=== PATIENT | female | born 1960 | race Hispanic/Latino ===

== ENCOUNTER 2016-12-14 19:34 | Emergency (ER) | payer OTHER ==
--- NOTE | 2016-12-14 21:33 | Emergency Department Report ---
HPI - General Time Seen by Provider: 12/14/16 21:04 - HPI HPI: This is a 56-year-old female presents to the emergency department with the need for a psychiatric evaluation. The patient appears to come through triage, although I'm unsure how she got to the hospital. Through triage they were able to obtain the fact that she has a history of bipolar disorder and there was allegedly some mention of the patient feeling suicidal. However since I seen the patient in the main emergency department, the patient is mostly nonverbal. She is very quick to get angry and even says that "you are pressing me off" when all that was asked is the patient's name, and how she got to the emergency department. The patient then began occasionally speaking to me but it does not appear to make complete sense. The patient says "what do you think you are", "you know you have some value" and "who do think you are bringing home." Otherwise patient is a poor historian. ED Past Medical Hx - Past Medical History Hx Congestive Heart Failure: Yes Hx Diabetes: No Hx Arthritis: Yes Hx Seizures: Yes Hx Kidney Stones: Yes Hx Psychiatric Treatment: Yes (Bipolar, Manic) Hx Asthma: Yes Hx COPD: Yes Additional medical history: Chronic knee pain - sees pain specialist,TIA x 2 - Surgical History Additional Surgical History: C-sections x 2 - Social History Smoking Status: Current Every Day Smoker - Medications Home Medications: Home Medications Medication Instructions Recorded Confirmed Last Taken Type Doxepin [SINEquan] 25 mg PO QHS 01/14/15 02/24/16 02/23/16 History 25mg Gabapentin [Neurontin] 300 mg PO QID 01/14/15 02/24/16 02/23/16 History 300mg clonazePAM [KlonoPIN] 1 mg PO TID 01/14/15 02/24/16 02/03/16 History 1mg Albuterol Sulfate [Ventolin HFA] 2 in2 IH Q4H 11/01/15 02/24/16 02/23/16 History 2 Aspirin EC [Aspirin Enteric Coated 81 mg PO DAILY 11/01/15 02/24/16 02/23/16 History TAB] 81mg Budesoni/Formotero 160-4.5(Nf) 2 inhalation IH BID 11/01/15 02/24/16 02/23/16 History [Symbicort 160-4.5 (Nf)] 2 Methocarbamol [Robaxin TAB] 750 mg PO Q12H PRN 11/01/15 02/24/16 02/23/16 History 750mg Naproxen [Naprosyn] 500 mg PO BID 11/01/15 02/24/16 02/17/16 History 500mg oxyCODONE [Roxicodone] 20 mg PO QID 11/01/15 02/24/16 02/23/16 History 20mg Divalproex ER [Depakote ER] 500 mg PO BID tablet 11/02/15 02/24/16 02/23/16 Rx 500mg ALBUTEROL Inhaler [ProAir HFA 2 puff IH QID PRN #1 inhalation 02/18/16 02/24/16 02/23/16 Rx Inhaler] 2 ED Review of Systems ROS: Stated complaint: MH EVAL Other details as noted in HPI Comment: Unobtainable due to pts medical conditions Physical Exam - Physical Exam Physical Exam: GENERAL: The patient is well-developed well-nourished. HEENT: Normocephalic. Atraumatic. Extraocular motions are intact. Patient has moist mucous membranes. Pupils equal reactive to light bilaterally. NECK: Supple. Trachea is midline. CHEST/LUNGS: Clear to auscultation. There is no respiratory distress noted. HEART/CARDIOVASCULAR: Regular. There is no tachycardia. There is no gallop rub or murmur. ABDOMEN: Abdomen is soft, nontender. Patient has normal bowel sounds. There is no abdominal distention. SKIN: There is no rash. There is no edema. There is no diaphoresis. NEURO: Patient is not cooperative and is often defiant. No obvious neurological deficits seen. Patient is mostly nonverbal but when she does speak the speech appears normal. MUSCULOSKELETAL: There is no tenderness or deformity. There is no limitation range of motion. There is no evidence of acute injury. ED Medical Decision Making - Lab Data Result diagrams: 12/14/16 21:09 12/14/16 21:09 - Medical Decision Making 56-year-old female presents to the emergency department with what appears to be some level of psychosis. There is some records that states she has a history of bipolar disorder. Patient is mostly nonverbal but sometimes will talk and appears to find. She is easily angry when she is asked basic questions. She also does not appear to make complete sense that she keeps saying random things such as that I have "worth" and asking who I "think (I'm) taking home." She will not answer most questions that are asked of her. Vital signs stable throughout her ED course. Labs thus far do not show any etiology of the patient 's symptoms. There is a leukocytosis of about 14,000 but there is no signs of infection seen on physical exam and the patient has no fever. No electrolyte abnormalities. Slightly elevated bicarbonate at that could show some dehydration, however patient able to take in oral fluids. No renal insufficiency. We are currently waiting on urinalysis to rule out urinary tract infection and for urine drug screen. However patient appears medically cleared for psychiatric placement. She has been made a 1013 secondary to her psychosis. - Differential Diagnosis schizophrenia, bipolar disorder, schizoaffective, substance abuse Critical Care Time: No Critical care attestation.: If time is entered above; I have spent that time in minutes in the direct care of this critically ill patient, excluding procedure time. ED Disposition Clinical Impression: Bipolar 1 disorder, Anger reaction Psychosis Qualifiers: Psychosis type: unspecified psychosis type Qualified Code(s): F29 - Unspecified psychosis not due to a substance or known physiological condition Schizophrenia Qualifiers: Schizophrenia type: unspecified Qualified Code(s): F20.9 - Schizophrenia, unspecified Disposition: DC/TX PSY HOSP/PSY UNIT Is pt being admited?: No Condition: Stable Referrals: PRIMARY CARE [Primary Care Provider] - 3-5 Days Time of Disposition: 00:41
[2016-12-14 21:37] LABS: Basophils % (Auto) 0.4 % (0.0-1.8); Eosinophils % (Auto) 0.9 % (0.0-4.3); Hematocrit 46.3 % (30.3-42.9); Hemoglobin 15.7 gm/dl (10.1-14.3); Mean Corpuscular HGB Conc 34 % (30-34); Mean Corpuscular Hemoglobin 31 pg (28-32); Mean Corpuscular Volume 91 fl (79-97); Platelet Count 345 K/mm3 (140-440); Red Blood Count 5.12 M/mm3 (3.65-5.03); Red Cell Distribution Width 14.7 % (13.2-15.2); White Blood Count 14.8 K/mm3 (4.5-11.0)
[2016-12-14 21:59] LABS: Alanine Aminotransferase 19 units/L (7-56); Albumin 4.4 g/dL (3.9-5); Alkaline Phosphatase 103 units/L (35-129); Anion Gap 22 mmol/L; BUN/Creatinine Ratio 35.55; Blood Urea Nitrogen 32 mg/dL (7-17); Calcium 10.3 mg/dL (8.4-10.2); Carbon Dioxide 21 mmol/L (22-30); Chloride 95.9 mmol/L (98-107); Glucose 103 mg/dL (65-100); Potassium 3.8 mmol/L (3.6-5.0); Sodium 135 mmol/L (137-145)
--- NOTE | 2016-12-15 12:55 | Consultation ---
History of Present Illness - Reason for Consult Consult date: 12/15/16 Reason for consult: Mental Health Evaluation Requesting physician: MILLER LONGORIA - Chief Complaint Chief complaint: "I don't know what is happening" - History of Present Psychiatric Illness This is a 56-year-old female presents to the emergency department with the need for a psychiatric evaluation. Today patient is irritable, but cooperative during assessment. She stated that she do not need to be here, because nothing is wrong with her. Per the patient, the only thing with her is her 'heart need to be replaced." Patient was jumping from one topic to the next during our conversation. She stated, "I cannot focus at this time." After a couple minute, patient stated that the engineering writer are out to get her. She deny being paranoid at this time. She cannot tell me what medication she takes at this time. She did state that she is "bipolar." Also, she could not tell me how she got to [facility]. She denies SI/HI's, AVH's, sleep disturbance or a poor appetite. She denies recreational drug use or alcohol consumption (etoh). Medications and Allergies Allergies Allergy/AdvReac Type Severity Reaction Status Date / Time haloperidol [From Haldol] Allergy Swelling Verified 02/17/16 23:27 haloperidol lactate Allergy Swelling Verified 06/13/13 23:08 [From Haldol] ibuprofen [From Motrin] Allergy Swelling Verified 02/17/16 23:27 Sulfa (Sulfonamide Allergy Unknown Verified 02/17/16 23:27 Antibiotics) ziprasidone HCl [From Geodon] Allergy Unknown Verified 02/17/16 23:27 ziprasidone mesylate Allergy Unknown Verified 02/17/16 23:26 [From Geodon] Home Medications Medication Instructions Recorded Confirmed Last Taken Type Doxepin [SINEquan] 25 mg PO QHS 01/14/15 02/24/16 02/23/16 History 25mg Gabapentin [Neurontin] 300 mg PO QID 01/14/15 02/24/16 02/23/16 History 300mg clonazePAM [KlonoPIN] 1 mg PO TID 01/14/15 02/24/16 02/03/16 History 1mg Albuterol Sulfate [Ventolin HFA] 2 in2 IH Q4H 11/01/15 02/24/16 02/23/16 History 2 Aspirin EC [Aspirin Enteric Coated 81 mg PO DAILY 11/01/15 02/24/16 02/23/16 History TAB] 81mg Budesoni/Formotero 160-4.5(Nf) 2 inhalation IH BID 11/01/15 02/24/16 02/23/16 History [Symbicort 160-4.5 (Nf)] 2 Methocarbamol [Robaxin TAB] 750 mg PO Q12H PRN 11/01/15 02/24/16 02/23/16 History 750mg Naproxen [Naprosyn] 500 mg PO BID 11/01/15 02/24/16 02/17/16 History 500mg oxyCODONE [Roxicodone] 20 mg PO QID 11/01/15 02/24/16 02/23/16 History 20mg Divalproex ER [Depakote ER] 500 mg PO BID tablet 11/02/15 02/24/16 02/23/16 Rx 500mg ALBUTEROL Inhaler [ProAir HFA 2 puff IH QID PRN #1 inhalation 02/18/16 02/24/16 02/23/16 Rx Inhaler] 2 Past psychiatric history - Past Medical History Past Medical History: COPD, seizures, other (kidney stones) Past Surgical History: No surgical history - past Psychiatric treatment and history Psych: Bipolar psychiatric treatment history: Multiple inpatient setting per the patient. She would not say if there is a fam psy hx. - Social History Social history: other (Patient would not say where she resides) Mental Status Exam - Vital signs Last Vital Signs Temp 98.0 F 12/15/16 09:16 Pulse 93 H 12/15/16 09:16 Resp 14 12/15/16 09:16 BP 131/76 12/15/16 09:16 Pulse Ox 95 12/15/16 09:16 - Exam Narrative exam: ROS (+) robb MSE: Appearance: irritable, cooperative Behavior: good eye contact Speech: regular rate and tone Mood: "okay" Affect: flat Thought Process: tangential, loose associations Thought Content: denies HI's and AVH's Motor Activity: ambulatory Cognition: a/ox 2 Insight: poor Judgment: poor Results Result Diagrams: 12/14/16 21:09 12/14/16 21:09 Abnormal lab results 12/14/16 12/14/16 Range/Units 21:09 21:09 WBC 14.8 H (4.5-11.0) K/mm3 RBC 5.12 H (3.65-5.03) M/mm3 Hgb 15.7 H (10.1-14.3) gm/dl Hct 46.3 H (30.3-42.9) % Davis # 1.0 H (0.0-0.8) K/mm3 Seg Neutrophils # 9.1 H (1.8-7.7) K/mm3 Sodium 135 L (137-145) mmol/L Chloride 95.9 L (98-107) mmol/L Carbon Dioxide 21 L (22-30) mmol/L BUN 32 H (7-17) mg/dL Glucose 103 H (65-100) mg/dL Calcium 10.3 H (8.4-10.2) mg/dL Total Protein 9.0 H (6.3-8.2) g/dL All other labs normal. Assessment and Plan Assessment and plan: Impression: Unspecified Mood DO. This is a 56-year-old female presents to the emergency department with the need for a psychiatric evaluation. Today patient is irritable, but cooperative during assessment. She stated that she do not need to be here, because nothing is wrong with her. Per the patient, the only thing with her is her 'heart need to be replaced." Patient was jumping from one topic to the next during our conversation. She denies SI/HI's and AVH's. DD: R/O Bipolar Recommendation/Plan: Continue 1013 with placement to inpatient psy services. Start Risperdal 2 mg PO HS for psychosis, Depakote 500 mg PO BID for mood, and Cogentin 0.5 mg PO HS for EPS prevention.. Discussed possible metabolic side effects from Risperdal with patient.
[2016-12-15 15:14] LABS: Urine Drugs of Abuse Note Disclamer
[2016-12-15 15:44] LABS: Bilirubin,Urine NEG (Negative); Blood,Urine NEG (Negative); Ketones,Urine 20 mg/dL (Negative); Leukocyte Esterase,Urine NEG (Negative); Mucus,Urine 3+ /HPF; Nitrite,Urine NEG (Negative)
[2016-12-15] MEDS: RisperDAL PO SCH (22:40)
[2016-12-15] MEDS: COGENTIN PO SCH (23:30)
[2016-12-16] MEDS ORDERED: TYLENOL ONE (07:32)
[2016-12-16] MEDS: TYLENOL PO PRN (08:04)
[2016-12-16] MEDS ORDERED: XANAX ONE (09:15)
[2016-12-16] MEDS ORDERED: XANAX PO ONE (09:16)
--- NOTE | 2016-12-16 15:55 | Progress Note ---
Subjective - Reason for Consult Consult date: 12/16/16 Reason for consult: psychiatric follow up - Chief Complaint Chief complaint: "people are talking about me" This is a 56-year-old female presented to the emergency department with the need for a psychiatric evaluation. Today patient is irritable, but cooperative during assessment. She denies SI/HI's, AVH's but has a disorganized thought process. She is tangential and expressing paranoid ideations. She states people are calling her names, calling her colors, and keeping her from sleeping. Mental Status Exam - Vital signs Last Vital Signs Temp 98.1 F 12/16/16 07:57 Pulse 98 H 12/16/16 07:57 Resp 16 12/16/16 08:02 BP 125/75 12/16/16 07:57 Pulse Ox 95 12/16/16 08:02 - Exam Orientation: time, place, person Affect: anxious Mood: anxious Thought content: paranoia Thought Process: Tangential, Disorganized Perceptions: none Speech: pressured Concentration: unable to pay attention Motor activity: restless Level of consciousness: alert Memory: Intact Sleep Symptoms: Difficulty Falling Asleep Interaction: cooperative Assessment and Plan Impression: Bipolar disorder with psychosis Recommendation/Plan: Continue 1013 with placement to inpatient psy services. Continue Risperdal 2 mg PO HS for psychosis, Depakote 500 mg PO BID for mood, and Cogentin 0.5 mg PO HS for EPS prevention.
[2016-12-16] MEDS: COGENTIN PO SCH (23:17)
[2016-12-16] MEDS: RisperDAL PO SCH (23:17)
--- NOTE | 2016-12-17 08:30 | Progress Note ---
Subjective - Reason for Consult Consult date: 12/17/16 Reason for consult: Psychiatry Follow-up - Chief Complaint Chief complaint: "I am ready to feel better" This is a 56-year-old female presented to the emergency department with the need for a psychiatric evaluation. Today patient is calm and cooperative during assessment. She stated that she cannot sleep because she feels "anxious." She was hyper verbal throughout our conversation with me having to interject. She denies SI/HI's, AVH's, but complains of sleep disturbance. She also stated that her appetite is not "okay." Mental Status Exam - Vital signs Last Vital Signs Temp 98.8 F 12/17/16 00:30 Pulse 134 H 12/17/16 00:30 Resp 20 12/17/16 02:21 BP 112/64 12/17/16 00:30 Pulse Ox 96 12/17/16 02:21 - Exam Narrative exam: MSE: Appearance: cooperative Behavior: good eye contact, hyper verbal Speech: regular rate and tone Mood: "anxious" Affect: flat Thought Process: circumstantial Thought Content: denies SI/HI's and AVH's Motor Activity: ambulatory Cognition: a/ox 3 Insight: limited Judgment: limited Assessment and Plan Impression: This is a 56-year-old female presented to the emergency department with the need for a psychiatric evaluation. Today patient is calm and cooperative during assessment. She stated that she cannot sleep because she feels "anxious." She rate her anxiety 6/10, with 10 being the worse. She was hyper verbal throughout our conversation with me having to interject. She denies SI/HI'sand AVH's. Positive for amphetamines and marijuana. Recommendation/Plan: Continue 1013 with placement to inpatient psy services. Continue Risperdal 2 mg PO HS for psychosis, Depakote 500 mg PO BID for mood, and Cogentin 0.5 mg PO HS for EPS prevention. Started Vistaril 25 mg PO TID for anxiety. Discussed possible metabolic side effects from Risperdal with patient.
[2016-12-17] MEDS: VISTARIL PO SCH ×3 (09:56→22:31)
[2016-12-17] MEDS: COGENTIN PO SCH (22:31)
[2016-12-17] MEDS: RisperDAL PO SCH (22:31)
[2016-12-18] MEDS ORDERED: TYLENOL PO ONE (03:00)
[2016-12-18 04:26] LABS: Basophils % (Auto) 0.5 % (0.0-1.8); Eosinophils % (Auto) 0.9 % (0.0-4.3); Hematocrit 38.4 % (30.3-42.9); Mean Corpuscular HGB Conc 34 % (30-34); Mean Corpuscular Hemoglobin 31 pg (28-32); Mean Corpuscular Volume 91 fl (79-97); Platelet Count 192 K/mm3 (140-440); Red Blood Count 4.21 M/mm3 (3.65-5.03); Red Cell Distribution Width 14.9 % (13.2-15.2)
--- NOTE | 2016-12-18 19:13 | Progress Note ---
Subjective - Reason for Consult Consult date: 12/18/16 Reason for consult: psychiatric follow up - Chief Complaint Chief complaint: "If I hurt someone, I'm sorry" This is a 56-year-old female presented to the emergency department with the need for a psychiatric evaluation. She required redirection through the interview stating she was sorry if she hurt someone. She also says people are talking about her and want her to be hurt. Staff report she left her room naked yesterday. She denies SI/HI's, AVH's, but complains of sleep disturbance. She also stated that her appetite is low. Mental Status Exam - Vital signs Last Vital Signs Temp 97.6 F 12/18/16 09:00 Pulse 96 H 12/18/16 09:00 Resp 14 12/18/16 09:00 BP 106/74 12/18/16 09:00 Pulse Ox 98 12/18/16 09:00 - Exam Narrative exam: she states she is at [place]. knows it is 2017 Orientation: person Affect: anxious Mood: fearful Thought content: delusions, paranoia Thought Process: Tangential, Disorganized Perceptions: other (denies) Speech: pressured Concentration: distractible Motor activity: restless Level of consciousness: alert Sleep Symptoms: Insomnia Appetite: decreased Interaction: pleasant Assessment and Plan Impression: Bipolar disorder with psychosis Recommendation/Plan: Continue 1013 with placement to inpatient psy services. Continue Risperdal 2 mg PO HS for psychosis, Depakote 500 mg PO BID for mood, and Cogentin 0.5 mg PO HS for EPS prevention.
[2016-12-18] MEDS: COGENTIN PO SCH (22:33)
[2016-12-18] MEDS: VISTARIL PO SCH ×2 (22:38→23:15)
[2016-12-18] MEDS: RisperDAL PO SCH (22:39)
[2016-12-19] MEDS: VISTARIL PO SCH ×2 (10:00→23:04)
--- NOTE | 2016-12-19 13:26 | Progress Note ---
Subjective - Reason for Consult Consult date: 12/19/16 Reason for consult: Psychosis/Anxiety - Chief Complaint Chief complaint: "If I hurt someone, I'm sorry" This is a 56-year-old female presented to the emergency department with the need for a psychiatric evaluation. She required redirection through the interview stating she was sorry if she hurt someone. She also says people are talking about her and want her to be hurt. Staff report she left her room naked yesterday. She denies SI/HI's, AVH's, but complains of sleep disturbance. She also stated that her appetite is low. Mental Status Exam - Vital signs Last Vital Signs Temp 98 F 12/19/16 08:45 Pulse 98 H 12/19/16 08:45 Resp 18 12/19/16 08:45 BP 110/79 12/19/16 08:45 Pulse Ox 98 12/19/16 08:45 - Exam Narrative exam: Patient is a 56 year olf female who presented to the ED on 12/14/2016 anxious and aggressive. Today she is being evaluated by psychiatry for her psychosis (auditory and visual hallucinations). Today, she appears to be very anxious and requesting medications, states, "I can't take it." Patient is very anxious not able to engage in assessment due to her anxiety. However, upon providing direct instructions to reduce her anxiety the patient anxiety level was reduced. She was easily redirected by staff. However, she required constant redirection while in the ED. Orientation: time, place, person Affect: anxious Mood: anxious Thought content: thought insertion Thought Process: Thought Blocking Perceptions: other (Denies but reports anxiety) Speech: other (labile with anxiety level) Concentration: distractible Motor activity: restless Level of consciousness: alert Memory: Intact Sleep Symptoms: Restless Appetite: decreased Interaction: cooperative, other Assessment and Plan Plan: 1. Add Geodon 10 mg, Ativan 2 mg, Benadryl 50 mg IM stat for behavior and anxiety as one time dose. 2. Continue pursuing [facility] placement 3. Continue 1013 Hold 4. Follow up on 12/20/2016 5. Monitor as needed
[2016-12-19] MEDS ORDERED: ATIVAN ONE (17:54)
[2016-12-19] MEDS ORDERED: ATIVAN IM ONE (18:04)
[2016-12-19] MEDS: RisperDAL PO SCH (23:06)
[2016-12-19] MEDS: COGENTIN PO SCH (23:06)
[2016-12-20] MEDS: VISTARIL PO SCH ×3 (09:19→23:17)
--- NOTE | 2016-12-20 15:30 | Physician Progress Note ---
FOLLOWUP REPORT REASON FOR FOLLOWUP: To reevaluate her mental status and also her response to therapy. SUBJECTIVE DATA: Includes this is just too much for me ____ here and voices, they are telling me someone is going to harm me, this is too much stress for me OBJECTIVE DATA: Include the patient is alert and oriented to person and place. She was unable to provide me with the day. Affect appears to be very irritable and anxious. Mood was congruent with that. Eye contact was limited. She was noted to be very hyperverbal. Thought process appeared to be very disorganized; however, she denies any suicidal or homicidal ideation. She reports hearing voices and seeing things, but she did not elaborate on what she was seen. She stated that the voices were telling her that they were going to harm her. She did report that she did not want to harm herself, but she has been very anxious since being here even on the current regimen that she is thinking we may have to increase her medications today. In regards to her sleep and her appetite, she reports doing fine. She is easily redirectable right now, but she requires constant redirection. Concentration and memory appear to be limited. Insight and judgment appears to be poor. ASSESSMENT: Includes schizoaffective disorder. PLAN: For her is to continue with the current regimen as prescribed. Continued to pursue inpatient hospitalization at [facility], which she is currently pending and we will continue to follow during hospitalization. JOB# [id number] TAMANNA/BEKA
[2016-12-20] MEDS: COGENTIN PO SCH (23:17)
[2016-12-20] MEDS: RisperDAL PO SCH (23:18)
[2016-12-21] MEDS: VISTARIL PO SCH ×4 (08:11→21:23)
--- NOTE | 2016-12-21 09:01 | Progress Note ---
Subjective - Reason for Consult Consult date: 12/21/16 Reason for consult: Psychiatry Follow-up - Chief Complaint Chief complaint: "I am stressed today" This is a 56-year-old female presented to the emergency department with the need for a psychiatric evaluation. Today patient is hyper verbal and delusional about robbing a bank. She stated that voices in her ear are "overwhelming and stressful" for her. She required redirection multiple during our conversation. She could not tell me more about her robbing a bank other than, "I am scared." She denies SI/HI's, VH's, or a poor appetite. She stated that she can't sleep at night because of the "voices." Mental Status Exam - Vital signs Last Vital Signs Temp 97.5 F L 12/21/16 08:40 Pulse 82 12/21/16 08:40 Resp 18 12/21/16 08:40 BP 103/65 12/21/16 08:40 Pulse Ox 94 12/21/16 08:40 - Exam Narrative exam: MSE: Appearance: cooperative Behavior: good eye contact, hyper verbal Speech: regular rate and tone Mood: "I'm stressed" Affect: flat Thought Process: tangential Thought Content: denies SI/HI's and AVH's Motor Activity: ambulatory Cognition: a/ox 3 Insight: poor Judgment: limited Assessment and Plan Impression: This is a 56-year-old female presented to the emergency department with the need for a psychiatric evaluation. Today patient is hyper verbal and delusional about robbing a bank. She stated that voices in her ear are "overwhelming and stressful" for her. She required redirection multiple during our conversation. She denies SI/HI's and VH's. Recommendation/Plan: Continue 1013 with placement to inpatient psy services. Increase Risperdal 2 mg PO BID for psychosis, Depakote 500 mg PO BID for mood, and Cogentin 0.5 mg PO HS for EPS prevention. Continue Vistaril 25 mg PO TID for anxiety. Discussed possible metabolic side effects from Risperdal with patient. [facility] ordered.
[2016-12-21 10:31] LABS: Hematocrit 38.6 % (30.3-42.9); Hemoglobin 12.7 gm/dl (10.1-14.3); Mean Corpuscular HGB Conc 33 % (30-34); Mean Corpuscular Hemoglobin 31 pg (28-32); Mean Corpuscular Volume 93 fl (79-97); Platelet Count 182 K/mm3 (140-440); Red Blood Count 4.16 M/mm3 (3.65-5.03); White Blood Count 6.2 K/mm3 (4.5-11.0)
[2016-12-21] MEDS: ATIVAN IM PRN ×2 (11:20→18:27)
[2016-12-21] MEDS: TYLENOL PO PRN (21:25)
[2016-12-21] MEDS: RisperDAL PO SCH (21:33)
[2016-12-21] MEDS: COGENTIN PO SCH (21:34)
--- NOTE | 2016-12-22 09:05 | Progress Note ---
Subjective - Reason for Consult Consult date: 12/22/16 Reason for consult: Psychiatry Follow-up - Chief Complaint Chief complaint: "I didn't do it" This is a 56-year-old female presented to the emergency department with the need for a psychiatric evaluation. Today patient is still hyper verbal and delusional about robbing a bank. She stated that voices told her that she have a gun. She stated that she finally got rest once she "tuned" out the voices, but still is "stressed" about the situation. She required redirection multiple times during our conversation. She denies SI/HI's, VH's, a poor appetite, or depression symptoms. She stated that she slept "okay" last night. Mental Status Exam - Vital signs Last Vital Signs Temp 98.5 F 12/22/16 08:11 Pulse 73 12/22/16 08:11 Resp 20 12/22/16 08:11 BP 111/55 12/22/16 08:11 Pulse Ox 100 12/22/16 08:11 - Exam Narrative exam: MSE: Appearance: cooperative Behavior: good eye contact, hyper verbal Speech: regular rate and tone Mood: "I don't feel well" Affect: flat Thought Process: tangential Thought Content: denies SI/HI's and VH's Motor Activity: ambulatory Cognition: a/ox 3 Insight: poor Judgment: poor Assessment and Plan Impression: This is a 56-year-old female presented to the emergency department with the need for a psychiatric evaluation. Today patient is still hyper verbal and delusional about robbing a bank. She stated that voices told her that she have a gun. She stated that she finally got rest once she "tuned" out the voices , but still is "stressed" about the situation. She denies SI/HI's and VH's. Recommendation/Plan: Continue 1013 with placement to [facility] pending. Continue Risperdal 2 mg PO BID for psychosis, Depakote 500 mg PO BID for mood, Cogentin 0.5 mg PO HS for EPS prevention, and Vistaril 25 mg PO TID for anxiety. Discussed possible metabolic side effects from Risperdal with patient. [facility] ordered.
[2016-12-22] MEDS: VISTARIL PO SCH ×3 (10:00→21:33)
[2016-12-22] MEDS: ATIVAN IM PRN ×3 (10:54→21:36)
[2016-12-22] MEDS: RisperDAL PO SCH ×2 (11:53→21:34)
[2016-12-22] MEDS: COGENTIN PO SCH (21:33)
[2016-12-22] MEDS: TYLENOL PO PRN (21:37)
[2016-12-23 07:54] VITALS: BP 106/77
[2016-12-23] MEDS: RisperDAL PO SCH (10:30)
[2016-12-23] MEDS: VISTARIL PO SCH (10:30)
--- NOTE | 2016-12-23 12:45 | Progress Note ---
Subjective - Reason for Consult Consult date: 12/23/16 Reason for consult: psychiatric follow up - Chief Complaint Chief complaint: "I'm having a nervous breakdown" This is a 56-year-old female presented to the emergency department with the need for a psychiatric evaluation. Today patient is still hyper verbal and delusional. She required redirection multiple times during our conversation. She denies SI/HI's, VH's, a poor appetite, or depression symptoms. She requested shot of ativan repeatedly. Mental Status Exam - Vital signs Last Vital Signs Temp 98.6 F 12/23/16 07:52 Pulse 97 H 12/23/16 07:52 Resp 18 12/23/16 07:52 BP 106/77 12/23/16 07:52 Pulse Ox 99 12/23/16 07:52 - Exam Narrative exam: MSE: Appearance: cooperative Behavior: good eye contact, hyper verbal Speech: regular rate and tone Mood: "I don't feel well" Affect: flat Thought Process: tangential Thought Content: denies SI/HI's and VH's Motor Activity: ambulatory Cognition: a/ox 3 Insight: poor Judgment: poor Assessment and Plan Impression: Psychosis Recommendation/Plan: Continue 1013 with placement to [facility] pending. Continue Risperdal 2 mg PO BID for psychosis, Depakote 500 mg PO BID for mood, Cogentin 0.5 mg PO HS for EPS prevention, and Vistaril 25 mg PO TID for anxiety.
== END 2016-12-23 17:51 ==
LOC: EEVIPCON 19:34 → ED 19:34
DX: F29 Unspecified psychosis not due to a substance or known physiological condition (principal); F20.9 Schizophrenia, unspecified; F31.9 Bipolar disorder, unspecified; R45.4 Irritability and anger; M19.90 Unspecified osteoarthritis, unspecified site; R56.9 Unspecified convulsions; I50.9 Heart failure, unspecified; J44.9 Chronic obstructive pulmonary disease, unspecified; J45.909 Unspecified asthma, uncomplicated; G89.29 Other chronic pain; F17.200 Nicotine dependence, unspecified, uncomplicated; Z79.82 Long term (current) use of aspirin
CPT/HCPCS: 36415; 80053; 80164; 80307; 81001; 84703; 85025; 85027; 96372; 99285; G0480; J2060; 80320; Q0177

== ENCOUNTER 2018-01-21 04:30 | Emergency (ER) | payer MEDICARE ==
[2018-01-21] MEDS ORDERED: DUONEB *Not for PRN Use IH ONE ×2 (07:38→08:12)
[2018-01-21] MEDS ORDERED: TYLENOL PO ONE (07:38)
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
[2018-01-21 10:29] VITALS: BP 114/67
== END 2018-01-21 10:27 | disposition home or self-care (01) ==
LOC: ED 04:30
DX: J44.1 Chronic obstructive pulmonary disease with (acute) exacerbation (principal); F29 Unspecified psychosis not due to a substance or known physiological condition; T23.101A Burn of first degree of right hand, unspecified site, initial encounter; X08.8XXA Exposure to other specified smoke, fire and flames, initial encounter; Y93.89 Activity, other specified; Y92.89 Other specified places as the place of occurrence of the external cause; Y99.8 Other external cause status; F17.200 Nicotine dependence, unspecified, uncomplicated
CPT/HCPCS: 94640; 96372; 99283; J2930

== ENCOUNTER 2018-01-23 19:28 | Emergency (ER) | payer MEDICARE ==
[2018-01-23 20:12] LABS: Basophils % (Auto) 0.2 % (0.0-1.8); Hematocrit 39.1 % (30.3-42.9); Lymphocytes # (Auto) 1.5 K/mm3 (1.2-5.4); Lymphocytes % (Auto) 15.3 % (13.4-35.0); Mean Corpuscular HGB Conc 33 % (30-34); Mean Corpuscular Hemoglobin 31 pg (28-32); Mean Corpuscular Volume 94 fl (79-97); Monocytes # (Auto) 0.6 K/mm3 (0.0-0.8); Monocytes % (Auto) 6.4 % (0.0-7.3); Platelet Count 212 K/mm3 (140-440); Red Blood Count 4.18 M/mm3 (3.65-5.03); Red Cell Distribution Width 14.2 % (13.2-15.2)
[2018-01-23 20:18] LABS: Bacteria,Urine 3+ /HPF (Negative); Bilirubin,Urine NEG (Negative); Blood,Urine NEG (Negative); Color,Urine Amber (Yellow); Hyaline Casts,Urine 24 /LPF; Mucus,Urine 3+ /HPF
[2018-01-23 20:24] LABS: Amphetamine Screen,Urine PRESUMPTIVE NEGATIVE; Cocaine Screen,Urine PRESUMPTIVE NEGATIVE; Methadone Screen,Urine PRESUMPTIVE NEGATIVE
[2018-01-23 20:51] LABS: Benzodiazepines Screen,Urine PRESUMPTIVE POSITIVE; Cannabinoid Screen,Urine PRESUMPTIVE POSITIVE; Opiate Screen,Urine PRESUMPTIVE POSITIVE
[2018-01-24] MEDS ORDERED: MACROBID PO ONE (00:15)
[2018-01-24] MEDS ORDERED: NACL 0.9% 1000 ML 1,000 ML IV ONE ×2 (00:15→04:17)
[2018-01-24] MEDS ORDERED: K-DUR PO ONE ×5 (00:15→08:00)
[2018-01-24] MEDS ORDERED: DUONEB *Not for PRN Use IH ONE (02:35)
--- NOTE | 2018-01-24 04:28 | Emergency Department Report ---
ED Psych HPI - General Chief Complaint: Psych Stated Complaint: MENTAL HEALTH Time Seen by Provider: 01/23/18 23:42 Source: patient Mode of arrival: Ambulatory Limitations: No Limitations - History of Present Illness Initial Comments: 57-year-old female with a past medical history of arthritis, asthma, CHF, COPD, bipolar, kidney stones, seizures, chronic knee pain and TIAs presents to the hospital complaints "I think I had a nervous breakdown". Patient did not comply with her psychiatric medication. She is brought in by her roommate who states that patient is manic, off meds, and becoming verbally and physically aggressive at home. Patient complains of hallucinations. She complains of feeling overall tired and drained but no pain. Decreased by mouth intake reported. - Related Data Home Medications Medication Instructions Recorded Confirmed Last Taken Doxepin [SINEquan] 25 mg PO QHS 01/14/15 01/23/18 02/23/16 25mg Gabapentin [Neurontin] 300 mg PO QID 01/14/15 01/23/18 02/23/16 300mg clonazePAM [KlonoPIN] 1 mg PO TID 01/14/15 01/23/18 02/03/16 1mg Albuterol Sulfate [Ventolin HFA] 2 in2 IH Q4H 11/01/15 01/23/18 02/23/16 2 Aspirin EC [Aspirin Enteric Coated 81 mg PO DAILY 11/01/15 01/23/18 02/23/16 TAB] 81mg Budesoni/Formotero 160-4.5(Nf) 2 inhalation IH BID 11/01/15 01/23/18 02/23/16 [Symbicort 160-4.5 (Nf)] 2 Methocarbamol [Robaxin TAB] 750 mg PO Q12H PRN 11/01/15 01/23/18 02/23/16 750mg Naproxen [Naprosyn] 500 mg PO BID 11/01/15 01/23/18 02/17/16 500mg oxyCODONE [Roxicodone] 20 mg PO QID 11/01/15 01/23/18 02/23/16 20mg QUEtiapine [SEROquel] 200 mg PO QHS 01/24/18 01/24/18 Unknown Previous Rx's Medication Instructions Recorded Last Taken Type Divalproex ER [Depakote ER] 500 mg PO BID tablet 11/02/15 02/23/16 Rx 500mg ALBUTEROL Inhaler [ProAir HFA 2 puff IH QID PRN #1 inhalation 02/18/16 02/23/16 Rx Inhaler] 2 Albuterol Sulfate [Ventolin Hfa] 1 puff IH Q4H PRN #1 hfa.aer.ad 01/21/18 Unknown Rx Azithromycin [Zithromax Z-BARBIE] 250 mg PO QDAY #1 pack 01/21/18 Unknown Rx Bacitracin Zinc Oint [Antibiotic 1 applicatio TP BID #1 tube 01/21/18 Unknown Rx Oint] predniSONE [Deltasone] 20 mg PO QDAY #5 tab 01/21/18 Unknown Rx Allergies Allergy/AdvReac Type Severity Reaction Status Date / Time haloperidol [From Haldol] Allergy Swelling Verified 02/17/16 23:27 haloperidol lactate Allergy Swelling Verified 06/13/13 23:08 [From Haldol] ibuprofen [From Motrin] Allergy Swelling Verified 02/17/16 23:27 Sulfa (Sulfonamide Allergy Unknown Verified 02/17/16 23:27 Antibiotics) ziprasidone HCl [From Geodon] Allergy Unknown Verified 02/17/16 23:27 ziprasidone mesylate Allergy Unknown Verified 02/17/16 23:26 [From Geodon] ED Review of Systems ROS: Stated complaint: MENTAL HEALTH Other details as noted in HPI Comment: All other systems reviewed and negative ED Past Medical Hx - Past Medical History Hx Congestive Heart Failure: Yes Hx Diabetes: No Hx Arthritis: Yes Hx Seizures: Yes Hx Kidney Stones: Yes Hx Psychiatric Treatment: Yes (Bipolar, Manic) Hx Asthma: Yes Hx COPD: Yes Additional medical history: Chronic knee pain - sees pain specialist,TIA x 2 - Surgical History Additional Surgical History: C-sections x 2. hysterectomy - Social History Smoking Status: Unknown if ever smoked Substance Use Type: None - Medications Home Medications: Home Medications Medication Instructions Recorded Confirmed Last Taken Type Doxepin [SINEquan] 25 mg PO QHS 01/14/15 01/23/18 02/23/16 History 25mg Gabapentin [Neurontin] 300 mg PO QID 01/14/15 01/23/18 02/23/16 History 300mg clonazePAM [KlonoPIN] 1 mg PO TID 01/14/15 01/23/18 02/03/16 History 1mg Albuterol Sulfate [Ventolin HFA] 2 in2 IH Q4H 11/01/15 01/23/18 02/23/16 History 2 Aspirin EC [Aspirin Enteric Coated 81 mg PO DAILY 11/01/15 01/23/18 02/23/16 History TAB] 81mg Budesoni/Formotero 160-4.5(Nf) 2 inhalation IH BID 11/01/15 01/23/18 02/23/16 History [Symbicort 160-4.5 (Nf)] 2 Methocarbamol [Robaxin TAB] 750 mg PO Q12H PRN 11/01/15 01/23/18 02/23/16 History 750mg Naproxen [Naprosyn] 500 mg PO BID 11/01/15 01/23/18 02/17/16 History 500mg oxyCODONE [Roxicodone] 20 mg PO QID 11/01/15 01/23/18 02/23/16 History 20mg Divalproex ER [Depakote ER] 500 mg PO BID tablet 11/02/15 01/23/18 02/23/16 Rx 500mg ALBUTEROL Inhaler [ProAir HFA 2 puff IH QID PRN #1 inhalation 02/18/16 01/23/18 02/23/16 Rx Inhaler] 2 Albuterol Sulfate [Ventolin Hfa] 1 puff IH Q4H PRN #1 hfa.aer.ad 01/21/18 Unknown Rx Azithromycin [Zithromax Z-BARBIE] 250 mg PO QDAY #1 pack 01/21/18 01/23/18 Unknown Rx Bacitracin Zinc Oint [Antibiotic 1 applicatio TP BID #1 tube 01/21/18 01/23/18 Unknown Rx Oint] predniSONE [Deltasone] 20 mg PO QDAY #5 tab 01/21/18 01/23/18 Unknown Rx QUEtiapine [SEROquel] 200 mg PO QHS 01/24/18 01/24/18 Unknown History ED Physical Exam - General Limitations: No Limitations - Other Other exam information: General: No limitations, patient is alert in no acute distress Head exam: Atraumatic, normocephalic Eyes exam: Normal appearance ENT: Moist mucous membrane, normal oropharynx Neck exam: Normal inspection, full range of motion Respiratory exam: Clear to auscultation bilateral, no wheezes, rales, crackles Cardiovascular: Normal rate and rhythm, normal heart sounds Abdomen: Soft, nondistended, and nontender, with normal bowel sounds, no rebound, or guarding Extremity: Full range of motion normal inspection no deformity Back: Normal Inspection, full range of motion, no tenderness Neurologic: Alert, oriented x3, cranial nerves intact, no motor or sensory deficit Psychiatric: normal affect, normal mood Skin: Warm, dry, intact ED Course Vital Signs 01/23/18 01/23/18 01/24/18 19:27 19:34 03:04 Temperature 98.8 F 98.8 F Pulse Rate 110 H 113 H Pulse Rate [ 63 Anterior Bilateral Throughout] Respiratory 20 20 Rate Respiratory 18 Rate [Anterior Bilateral Throughout] Blood Pressure 141/79 141/79 Blood Pressure [Right] O2 Sat by Pulse 95 95 Oximetry 01/24/18 01/24/18 01/24/18 03:15 08:30 20:32 Temperature 98.3 F 97.8 F Pulse Rate 94 H 67 Pulse Rate [ 65 Anterior Bilateral Throughout] Respiratory 16 18 Rate Respiratory 18 Rate [Anterior Bilateral Throughout] Blood Pressure 115/62 Blood Pressure 111/47 [Right] O2 Sat by Pulse 97 95 Oximetry ED Medical Decision Making - Lab Data Result diagrams: 01/23/18 19:42 01/24/18 07:56 Lab Results 01/23/18 01/23/18 01/23/18 Range/Units 19:42 19:42 19:42 WBC (4.5-11.0) K/mm3 RBC (3.65-5.03) M/mm3 Hgb (10.1-14.3) gm/dl Hct (30.3-42.9) % MCV (79-97) fl MCH (28-32) pg MCHC (30-34) % RDW (13.2-15.2) % Plt Count (140-440) K/mm3 Lymph % (Auto) (13.4-35.0) % Alexander % (Auto) (0.0-7.3) % Eos % (Auto) (0.0-4.3) % Baso % (Auto) (0.0-1.8) % Lymph # (1.2-5.4) K/mm3 Alexander # (0.0-0.8) K/mm3 Eos # (0.0-0.4) K/mm3 Baso # (0.0-0.1) K/mm3 Seg Neutrophils % (40.0-70.0) % Seg Neutrophils # (1.8-7.7) K/mm3 Sodium 146 H (137-145) mmol/L Potassium 2.9 L* (3.6-5.0) mmol/L Chloride 105.6 (98-107) mmol/L Carbon Dioxide 21 L (22-30) mmol/L Anion Gap 22 mmol/L BUN 36 H (7-17) mg/dL Creatinine 1.4 H (0.7-1.2) mg/dL Estimated GFR 39 ml/min BUN/Creatinine Ratio 26 % Glucose 152 H (65-100) mg/dL Calcium 10.0 (8.4-10.2) mg/dL Magnesium 1.90 (1.7-2.3) mg/dL Total Creatine Kinase 409 H (30-135) units/L Urine Color (Yellow) Urine Turbidity (Clear) Urine pH (5.0-7.0) Ur Specific [place] (1.003-1.030) Urine Protein (Negative) mg/dL Urine Glucose (UA) (Negative) mg/dL Urine Ketones (Negative) mg/dL Urine Blood (Negative) Urine Nitrite (Negative) Urine Bilirubin (Negative) Urine Urobilinogen (<2.0) mg/dL Ur Leukocyte Esterase (Negative) Urine WBC (Auto) (0.0-6.0) /HPF Urine RBC (Auto) (0.0-6.0) /HPF U Epithel Cells (Auto) (0-13.0) /HPF Urine Bacteria (Auto) (Negative) /HPF Hyaline Casts /LPF Urine Mucus /HPF Salicylates < 0.3 L (2.8-20.0) mg/dL Urine Opiates Screen Urine Methadone Screen Acetaminophen < 5.0 L (10.0-30.0) ug/mL Ur Barbiturates Screen Valproic Acid (50-100) ug/mL Ur Phencyclidine Scrn Ur Amphetamines Screen U Benzodiazepines Scrn Urine Cocaine Screen U Marijuana (THC) Screen Drugs of Abuse Note Plasma/Serum Alcohol (0-0.07) % 01/23/18 01/23/18 01/23/18 Range/Units 19:42 19:42 20:03 WBC 9.8 (4.5-11.0) K/mm3 RBC 4.18 (3.65-5.03) M/mm3 Hgb 13.0 (10.1-14.3) gm/dl Hct 39.1 (30.3-42.9) % MCV 94 (79-97) fl MCH 31 (28-32) pg MCHC 33 (30-34) % RDW 14.2 (13.2-15.2) % Plt Count 212 (140-440) K/mm3 Lymph % (Auto) 15.3 (13.4-35.0) % Alexander % (Auto) 6.4 (0.0-7.3) % Eos % (Auto) 0.0 (0.0-4.3) % Baso % (Auto) 0.2 (0.0-1.8) % Lymph # 1.5 (1.2-5.4) K/mm3 Alexander # 0.6 (0.0-0.8) K/mm3 Eos # 0.0 (0.0-0.4) K/mm3 Baso # 0.0 (0.0-0.1) K/mm3 Seg Neutrophils % 78.1 H (40.0-70.0) % Seg Neutrophils # 7.7 (1.8-7.7) K/mm3 Sodium (137-145) mmol/L Potassium (3.6-5.0) mmol/L Chloride (98-107) mmol/L Carbon Dioxide (22-30) mmol/L Anion Gap mmol/L BUN (7-17) mg/dL Creatinine (0.7-1.2) mg/dL Estimated GFR ml/min BUN/Creatinine Ratio % Glucose (65-100) mg/dL Calcium (8.4-10.2) mg/dL Magnesium (1.7-2.3) mg/dL Total Creatine Kinase (30-135) units/L Urine Color [place] (Yellow) Urine Turbidity Clear (Clear) Urine pH 5.0 (5.0-7.0) Ur Specific [place] 1.029 (1.003-1.030) Urine Protein 100 mg/dl (Negative) mg/dL Urine Glucose (UA) Neg (Negative) mg/dL Urine Ketones Tr (Negative) mg/dL Urine Blood Neg (Negative) Urine Nitrite Neg (Negative) Urine Bilirubin Neg (Negative) Urine Urobilinogen 4.0 (<2.0) mg/dL Ur Leukocyte Esterase Lg (Negative) Urine WBC (Auto) 56.0 H (0.0-6.0) /HPF Urine RBC (Auto) 9.0 (0.0-6.0) /HPF U Epithel Cells (Auto) 18.0 H (0-13.0) /HPF Urine Bacteria (Auto) 3+ (Negative) /HPF Hyaline Casts 24 /LPF Urine Mucus 3+ /HPF Salicylates (2.8-20.0) mg/dL Urine Opiates Screen Urine Methadone Screen Acetaminophen (10.0-30.0) ug/mL Ur Barbiturates Screen Valproic Acid (50-100) ug/mL Ur Phencyclidine Scrn Ur Amphetamines Screen U Benzodiazepines Scrn Urine Cocaine Screen U Marijuana (THC) Screen Drugs of Abuse Note Plasma/Serum Alcohol < 0.01 (0-0.07) % 01/23/18 01/23/18 Range/Units 20:03 Unknown WBC (4.5-11.0) K/mm3 RBC (3.65-5.03) M/mm3 Hgb (10.1-14.3) gm/dl Hct (30.3-42.9) % MCV (79-97) fl MCH (28-32) pg MCHC (30-34) % RDW (13.2-15.2) % Plt Count (140-440) K/mm3 Lymph % (Auto) (13.4-35.0) % Alexander % (Auto) (0.0-7.3) % Eos % (Auto) (0.0-4.3) % Baso % (Auto) (0.0-1.8) % Lymph # (1.2-5.4) K/mm3 Alexander # (0.0-0.8) K/mm3 Eos # (0.0-0.4) K/mm3 Baso # (0.0-0.1) K/mm3 Seg Neutrophils % (40.0-70.0) % Seg Neutrophils # (1.8-7.7) K/mm3 Sodium (137-145) mmol/L Potassium (3.6-5.0) mmol/L Chloride (98-107) mmol/L Carbon Dioxide (22-30) mmol/L Anion Gap mmol/L BUN (7-17) mg/dL Creatinine (0.7-1.2) mg/dL Estimated GFR ml/min BUN/Creatinine Ratio % Glucose (65-100) mg/dL Calcium (8.4-10.2) mg/dL Magnesium (1.7-2.3) mg/dL Total Creatine Kinase (30-135) units/L Urine Color (Yellow) Urine Turbidity (Clear) Urine pH (5.0-7.0) Ur Specific [place] (1.003-1.030) Urine Protein (Negative) mg/dL Urine Glucose (UA) (Negative) mg/dL Urine Ketones (Negative) mg/dL Urine Blood (Negative) Urine Nitrite (Negative) Urine Bilirubin (Negative) Urine Urobilinogen (<2.0) mg/dL Ur Leukocyte Esterase (Negative) Urine WBC (Auto) (0.0-6.0) /HPF Urine RBC (Auto) (0.0-6.0) /HPF U Epithel Cells (Auto) (0-13.0) /HPF Urine Bacteria (Auto) (Negative) /HPF Hyaline Casts /LPF Urine Mucus /HPF Salicylates (2.8-20.0) mg/dL Urine Opiates Screen Presumptive positive Urine Methadone Screen Presumptive negative Acetaminophen (10.0-30.0) ug/mL Ur Barbiturates Screen Presumptive negative Valproic Acid < 2.8 L (50-100) ug/mL Ur Phencyclidine Scrn Presumptive negative Ur Amphetamines Screen Presumptive negative U Benzodiazepines Scrn Presumptive positive Urine Cocaine Screen Presumptive negative U Marijuana (THC) Screen Presumptive positive Drugs of Abuse Note Disclamer Plasma/Serum Alcohol (0-0.07) % - EKG Data -: EKG Interpreted by Me EKG shows normal: sinus rhythm, axis (qrs 57), QRS complexes (qrsd 130), ST-T waves (no stemi/t ) Rate: normal (61) - EKG Data When compared to previous EKG there are: no significant change - Medical Decision Making Bipolar/medication noncompliance Patient has been exhibiting combative, manic, and aggressive behavior likely secondary to medication noncompliance 1013 and transfer forms signed Awaiting mental health evaluation UDS positive for multiple substances Initial tachycardia improved Renal insufficiency Mild with elevated BUN/creatinine ratio suggestive of dehydration 2 L or normal saline provided in the ED Hypokalemia Supplemented with 30 by mouth potassium with repeat dose ordered at 6 AM repeat bmp ordered for 8 am Asthma mild wheezing duo neb given nebs prn UTI covered with macrobid. pt medically cleared for psych transfer (if potassium increased) Pt's known home meds will be continued - Differential Diagnosis bipolar, robb, suicidal ideation, medication noncompliance Critical Care Time: No Critical care attestation.: If time is entered above; I have spent that time in minutes in the direct care of this critically ill patient, excluding procedure time. ED Disposition Clinical Impression: Bipolar disorder, Manic behavior, Medical clearance for psychiatric admission, UTI (urinary tract infection), Hypokalemia Disposition: DC/TX-65 PSY HOSP/PSY UNIT Is pt being admited?: No Condition: Stable Time of Disposition: 05:07 (awaiting acceptance)
[2018-01-24] MEDS ORDERED: NON-FORMULARY (Clonazepam [Klonopin] 1 MG) PO SCH (08:00)
[2018-01-24 08:36] LABS: BUN/Creatinine Ratio 36; Blood Urea Nitrogen 32 mg/dL (7-17); Calcium 8.6 mg/dL (8.4-10.2); Hemolysis Index 2
[2018-01-24] MEDS: BROVANA NEBU IH SCH ×2 (09:29→19:50)
[2018-01-24] MEDS: PULMICORT IH SCH ×2 (09:30→19:50)
[2018-01-24] MEDS ORDERED: BUDESONIDE IH SCH (10:00)
[2018-01-24] MEDS ORDERED: FORMOTEROL IH SCH (10:00)
[2018-01-24] MEDS: MACROBID PO SCH ×2 (10:15→21:54)
[2018-01-24] MEDS: NEURONTIN PO SCH ×4 (10:15→21:53)
[2018-01-24 12:19] LABS: Alanine Aminotransferase 11 units/L (7-56); Lipase 28 units/L (13-60)
--- NOTE | 2018-01-24 12:31 | Consultation ---
History of Present Illness - Reason for Consult Consult date: 01/24/18 Reason for consult: Mental Health Evaluation Requesting physician: BLANKA PEDERSON - Chief Complaint Chief complaint: "I don't know what's wrong with me" - History of Present Psychiatric Illness 57-year-old female with a past medical history of arthritis, asthma, CHF, COPD, bipolar, kidney stones, seizures, chronic knee pain and TIAs presents to the hospital complaints "I think I had a nervous breakdown." This patient is known to me. Today the patient is calm, but tangent during the assessment. She was disorganized, hyper verbal, and had to be redirected several times to keep her on topic. She stated having a anxiety do. She stated that she haven't slept in 3 days when asked. She acknowledged not taking her psy medications for the past week. She denies HI's and AVH's. She would not confirm or deny SI's. She denies recreational drug use, but positive for marijuana. She denies alcohol consumption (etoh). Medications and Allergies Allergies Allergy/AdvReac Type Severity Reaction Status Date / Time haloperidol [From Haldol] Allergy Swelling Verified 02/17/16 23:27 haloperidol lactate Allergy Swelling Verified 06/13/13 23:08 [From Haldol] ibuprofen [From Motrin] Allergy Swelling Verified 02/17/16 23:27 Sulfa (Sulfonamide Allergy Unknown Verified 02/17/16 23:27 Antibiotics) ziprasidone HCl [From Geodon] Allergy Unknown Verified 02/17/16 23:27 ziprasidone mesylate Allergy Unknown Verified 02/17/16 23:26 [From Geodon] Home Medications Medication Instructions Recorded Confirmed Last Taken Type Doxepin [SINEquan] 25 mg PO QHS 01/14/15 01/23/18 02/23/16 History 25mg Gabapentin [Neurontin] 300 mg PO QID 01/14/15 01/23/18 02/23/16 History 300mg clonazePAM [KlonoPIN] 1 mg PO TID 01/14/15 01/23/18 02/03/16 History 1mg Albuterol Sulfate [Ventolin HFA] 2 in2 IH Q4H 11/01/15 01/23/18 02/23/16 History 2 Aspirin EC [Aspirin Enteric Coated 81 mg PO DAILY 0401/23/18 02/23/16 History TAB] 81mg Budesoni/Formotero 160-4.5(Nf) 2 inhalation IH BID 11/01/15 01/23/18 02/23/16 History [Symbicort 160-4.5 (Nf)] 2 Methocarbamol [Robaxin TAB] 750 mg PO Q12H PRN 11/01/15 01/23/18 02/23/16 History 750mg Naproxen [Naprosyn] 500 mg PO BID 11/01/15 01/23/18 02/17/16 History 500mg oxyCODONE [Roxicodone] 20 mg PO QID 11/01/15 01/23/18 02/23/16 History 20mg Divalproex ER [Depakote ER] 500 mg PO BID tablet 11/02/15 01/23/18 02/23/16 Rx 500mg ALBUTEROL Inhaler [ProAir HFA 2 puff IH QID PRN #1 inhalation 02/18/16 01/23/18 02/23/16 Rx Inhaler] 2 Albuterol Sulfate [Ventolin Hfa] 1 puff IH Q4H PRN #1 hfa.aer.ad 01/21/18 Unknown Rx Azithromycin [Zithromax Z-BARBIE] 250 mg PO QDAY #1 pack 01/21/18 01/23/18 Unknown Rx Bacitracin Zinc Oint [Antibiotic 1 applicatio TP BID #1 tube 01/21/18 01/23/18 Unknown Rx Oint] predniSONE [Deltasone] 20 mg PO QDAY #5 tab 01/21/18 01/23/18 Unknown Rx QUEtiapine [SEROquel] 200 mg PO QHS 01/24/18 01/24/18 Unknown History Active Meds: Active Medications Arformoterol Tartrate (Brovana Nebu) 15 mcg IH Q12HRT [facility] Last Admin: 01/24/18 09:29 Dose: 15 mcg Aspirin (Halfprin Ec) 81 mg PO DAILY [facility] Budesonide (Pulmicort) 1 mg IH Q12HRT [facility] Last Admin: 01/24/18 09:30 Dose: 1 mg Clonazepam (Klonopin) 1 mg PO TID [facility] Last Admin: 01/24/18 08:59 Dose: 1 mg Divalproex Sodium (Depakote Er) 500 mg PO BID [facility] Last Admin: 01/24/18 10:15 Dose: 500 mg Gabapentin (Neurontin) 300 mg PO QID [facility] Last Admin: 01/24/18 10:15 Dose: 300 mg Nitrofurantoin Macrocrystals (Macrobid) 100 mg PO BID [facility] Stop: 01/28/18 10:01 Last Admin: 01/24/18 10:15 Dose: 100 mg Quetiapine Fumarate (Seroquel) 200 mg PO QHS [facility] Past psychiatric history - Past Medical History Past Medical History: COPD, diabetes, hypertension, other (Kidney Stones) Past Surgical History: No surgical history - past Psychiatric treatment and history psychiatric treatment history: Several inpatient psy settings. Denies a fam psy hx. - Social History Social history: other (Reside in a assisted) Mental Status Exam - Vital signs Last Vital Signs Temp 98.3 F 01/24/18 08:30 Pulse 94 H 01/24/18 08:30 Resp 16 01/24/18 08:30 BP 111/47 01/24/18 08:30 Pulse Ox 97 01/24/18 08:30 - Exam Narrative exam: MSE: Appearance: calm, cooperative Behavior: regular eye contact Speech: regular rate and tone, hyper verbal Mood: "tired" Affect: congruent to mood Thought Process: tangential Thought Content: denies HI's and AVH's, would not confirm or deny SI's Motor Activity: lying in bed Cognition: A/O x 3 Insight: poor Judgment: poor Results Result Diagrams: 01/23/18 19:42 01/24/18 07:56 Abnormal lab results 01/23/18 01/23/18 01/23/18 Range/Units 19:42 19:42 19:42 Seg Neutrophils % (40.0-70.0) % Sodium 146 H (137-145) mmol/L Potassium 2.9 L* (3.6-5.0) mmol/L Chloride (98-107) mmol/L Carbon Dioxide 21 L (22-30) mmol/L BUN 36 H (7-17) mg/dL Creatinine 1.4 H (0.7-1.2) mg/dL Glucose 152 H (65-100) mg/dL Total Creatine Kinase 409 H (30-135) units/L Urine WBC (Auto) (0.0-6.0) /HPF U Epithel Cells (Auto) (0-13.0) /HPF Salicylates < 0.3 L (2.8-20.0) mg/dL Acetaminophen < 5.0 L (10.0-30.0) ug/mL Valproic Acid (50-100) ug/mL 01/23/18 01/23/18 01/23/18 Range/Units 19:42 20:03 Unknown Seg Neutrophils % 78.1 H (40.0-70.0) % Sodium (137-145) mmol/L Potassium (3.6-5.0) mmol/L Chloride (98-107) mmol/L Carbon Dioxide (22-30) mmol/L BUN (7-17) mg/dL Creatinine (0.7-1.2) mg/dL Glucose (65-100) mg/dL Total Creatine Kinase (30-135) units/L Urine WBC (Auto) 56.0 H (0.0-6.0) /HPF U Epithel Cells (Auto) 18.0 H (0-13.0) /HPF Salicylates (2.8-20.0) mg/dL Acetaminophen (10.0-30.0) ug/mL Valproic Acid < 2.8 L (50-100) ug/mL 01/24/18 Range/Units 07:56 Seg Neutrophils % (40.0-70.0) % Sodium 147 H (137-145) mmol/L Potassium (3.6-5.0) mmol/L Chloride 110.9 H (98-107) mmol/L Carbon Dioxide (22-30) mmol/L BUN 32 H (7-17) mg/dL Creatinine (0.7-1.2) mg/dL Glucose (65-100) mg/dL Total Creatine Kinase (30-135) units/L Urine WBC (Auto) (0.0-6.0) /HPF U Epithel Cells (Auto) (0-13.0) /HPF Salicylates (2.8-20.0) mg/dL Acetaminophen (10.0-30.0) ug/mL Valproic Acid (50-100) ug/mL All other labs normal. Assessment and Plan Assessment and plan: Impression: Unspecified Mood Do with psy features. Cannabis Use DO. Hx of Anxiety DO. Today the patient is calm, but tangent during the assessment. DDx: Bipolar DO with psychosis, R/O Schizoaffective DO, R/O Substance Induced Mood DO Recommendation/Plan: Continue 1013 with pending placement to [facility]. Continue Depakote 500 mg PO BID for mood, Klonopin 1 mg PO TID anxiety, and Seroquel 200 mg PO HS for mood/psychosis. Discussed possible metabolic side effects of Seroquel with patients.
[2018-01-25] MEDS: PULMICORT IH SCH (07:49)
[2018-01-25] MEDS: BROVANA NEBU IH SCH (07:49)
[2018-01-25 08:38] VITALS: BP 122/82
[2018-01-25] MEDS: NEURONTIN PO SCH (09:42)
[2018-01-25] MEDS: MACROBID PO SCH (09:42)
[2018-01-25] MEDS: HALFPRIN EC PO SCH (09:46)
--- NOTE | 2018-01-25 12:13 | Progress Note ---
Subjective - Reason for Consult Consult date: 01/25/18 Reason for consult: Psychiatry Follow-up - Chief Complaint Chief complaint: "Hello" 57-year-old female with a past medical history of arthritis, asthma, CHF, COPD, bipolar, kidney stones, seizures, chronic knee pain and TIAs presents to the hospital complaints "I think I had a nervous breakdown." This patient is known to me. Today the patient is calm and cooperative during the assessment. She is delusional today stating that she shot the [place] President. She is adamant that [place] President is . She denies SI/HI's and AVH's. She denies any side effects of her medications. Mental Status Exam - Vital signs Last Vital Signs Temp 97.5 F L 01/25/18 08:37 Pulse 88 01/25/18 08:37 Resp 18 01/25/18 08:37 BP 122/82 01/25/18 08:37 Pulse Ox 95 01/24/18 20:32 - Exam Narrative exam: MSE: Appearance: calm, cooperative Behavior: regular eye contact Speech: regular rate and tone, hyper verbal Mood: "I don't know" Affect: flat Thought Process: tangential Thought Content: denies SI/HI's and AVH's Motor Activity: lying in bed Cognition: A/O x 3 Insight: poor Judgment: poor Assessment and Plan Impression: Unspecified Mood Do with psy features. Cannabis Use DO. Hx of Anxiety DO. Today the patient is calm, but tangent during the assessment. DDx: Bipolar DO with psychosis, R/O Schizoaffective DO, R/O Substance Induced Mood DO, R/O Delusional DO Recommendation/Plan: Continue 1013 with placement to [facility] today. Continue Depakote 500 mg PO BID for mood, Klonopin 1 mg PO TID anxiety, and Seroquel 200 mg PO HS for mood/psychosis. Discussed possible metabolic side effects of Seroquel with patients.
== END 2018-01-25 10:08 ==
LOC: EEVIPCON 19:28 → ED 19:28
DX: F31.9 Bipolar disorder, unspecified (principal); N39.0 Urinary tract infection, site not specified; E87.6 Hypokalemia; M19.90 Unspecified osteoarthritis, unspecified site; J45.909 Unspecified asthma, uncomplicated; G89.29 Other chronic pain; Z90.710 Acquired absence of both cervix and uterus; Z79.82 Long term (current) use of aspirin; Z88.2 Allergy status to sulfonamides; Z88.6 Allergy status to analgesic agent; Z88.8 Allergy status to other drugs, medicaments and biological substances
CPT/HCPCS: 36415; 80048; 80164; 80307; 81001; 82150; 82550; 83690; 83735; 84075; 84450; 84460; 85025; 94640; 96360; 96361; 99285; G0480; J7030; 80320

== ENCOUNTER 2019-01-06 23:52 | Emergency (ER) | payer MEDICARE ==
--- NOTE | 2019-01-07 00:27 | Emergency Department Report ---
ED Psych HPI - General Chief Complaint: Psych Stated Complaint: MH EVAL Time Seen by Provider: 01/07/19 00:22 Source: patient, EMS Mode of arrival: Stretcher Limitations: Altered Mental Status - History of Present Illness Initial Comments: Wilver is a 58-year-old female presents to emergency room with complaints of need for mental evaluation. Patient was brought in by EMS. Family called EMS to bring the patient to hospital for bizarre behaviors. Patient states she was having arguments with her family and neighbors. Patient states that her neighbors ARGUMENT. Patient states she was watching TV. Patient states he has hallucinations that time. Patient states that she believes her neighbors are out to get her. MD Complaint: altered mental status -: Sudden Associated Psychiatric Symptoms: racing thoughts, auditory hallucinations, delusions History of same: Yes Quality: constant Improves With: none Worsens With: none Context: not taking psychiatric, significant life stressor Associated Symptoms: denies other symptoms Treatments Prior to Arrival: none - Related Data Home Medications Medication Instructions Recorded Confirmed Last Taken Doxepin [SINEquan] 25 mg PO QHS 01/14/15 01/23/18 02/23/16 25mg Gabapentin [Neurontin] 300 mg PO QID 01/14/15 01/23/18 02/23/16 300mg clonazePAM [KlonoPIN] 1 mg PO TID 01/14/15 01/23/18 02/03/16 1mg Albuterol Sulfate [Ventolin HFA] 2 in2 IH Q4H 11/01/15 01/23/18 02/23/16 2 Aspirin EC 81 mg PO DAILY 11/01/15 01/23/18 02/23/16 81mg Budesoni/Formotero 160-4.5(Nf) 2 inhalation IH BID 11/01/15 01/23/18 02/23/16 [Symbicort 160-4.5 (Nf)] 2 Naproxen [Naprosyn] 500 mg PO BID 11/01/15 01/23/18 02/17/16 500mg methOCARBAMOL [Robaxin TAB] 750 mg PO Q12H PRN 11/01/15 01/23/18 02/23/16 750mg oxyCODONE [Roxicodone] 20 mg PO QID 11/01/15 01/23/18 02/23/16 20mg QUEtiapine [SEROquel] 200 mg PO QHS 01/24/18 01/24/18 Unknown Previous Rx's Medication Instructions Recorded Last Taken Type Divalproex ER [Depakote ER] 500 mg PO BID tablet 11/02/15 02/23/16 Rx 500mg ALBUTEROL Inhaler (OR & NICU) 2 puff IH QID PRN #1 inhalation 02/18/16 02/23/16 Rx [ProAir HFA Inhaler] 2 Albuterol Sulfate [Ventolin Hfa] 1 puff IH Q4H PRN #1 hfa.aer.ad 01/21/18 Unknown Rx Azithromycin [Zithromax Z-BARBIE] 250 mg PO QDAY #1 pack 01/21/18 Unknown Rx Bacitracin Zinc Oint [Antibiotic 1 applicatio TP BID #1 tube 01/21/18 Unknown Rx Oint] predniSONE [Deltasone] 20 mg PO QDAY #5 tab 01/21/18 Unknown Rx Acetaminophen/Codeine [Tylenol 1 tab PO Q6H PRN #12 tab 05/26/18 Unknown Rx /Codeine # 3 tab] Cephalexin [Keflex] 500 mg PO TID #30 capsule 05/26/18 Unknown Rx Allergies Allergy/AdvReac Type Severity Reaction Status Date / Time haloperidol [From Haldol] Allergy Swelling Verified 02/17/16 23:27 haloperidol lactate Allergy Swelling Verified 06/13/13 23:08 [From Haldol] ibuprofen [From Motrin] Allergy Swelling Verified 02/17/16 23:27 Sulfa (Sulfonamide Allergy Unknown Verified 02/17/16 23:27 Antibiotics) ziprasidone HCl [From Geodon] Allergy Unknown Verified 02/17/16 23:27 ziprasidone mesylate Allergy Unknown Verified 02/17/16 23:26 [From Geodon] ED Review of Systems ROS: Stated complaint: MH EVAL Other details as noted in HPI Constitutional: denies: chills, fever Eyes: denies: eye pain, eye discharge, vision change ENT: denies: ear pain, throat pain Respiratory: denies: cough, shortness of breath, wheezing Cardiovascular: denies: chest pain, palpitations Endocrine: no symptoms reported Gastrointestinal: denies: abdominal pain, nausea, diarrhea Genitourinary: denies: urgency, dysuria, discharge Musculoskeletal: denies: back pain, joint swelling, arthralgia Skin: denies: rash, lesions Neurological: denies: headache, weakness, paresthesias Psychiatric: auditory hallucinations. denies: anxiety, depression, homicidal thoughts, suicidal thoughts Hematological/Lymphatic: denies: easy bleeding, easy bruising ED Past Medical Hx - Past Medical History Previous Medical History?: Yes Hx Congestive Heart Failure: Yes Hx Diabetes: No Hx Arthritis: Yes Hx Seizures: Yes Hx Kidney Stones: Yes Hx Psychiatric Treatment: Yes (Bipolar, Manic) Hx Asthma: Yes Hx COPD: Yes Additional medical history: Chronic knee pain - sees pain specialist,TIA x 2 - Surgical History Past Surgical History?: Yes Additional Surgical History: C-sections x 2. hysterectomy - Family History Family history: no significant - Social History Smoking Status: Current Every Day Smoker Substance Use Type: None - Medications Home Medications: Home Medications Medication Instructions Recorded Confirmed Last Taken Type Doxepin [SINEquan] 25 mg PO QHS 01/14/15 01/23/18 02/23/16 History 25mg Gabapentin [Neurontin] 300 mg PO QID 01/14/15 01/23/18 02/23/16 History 300mg clonazePAM [KlonoPIN] 1 mg PO TID 01/14/15 01/23/18 02/03/16 History 1mg Albuterol Sulfate [Ventolin HFA] 2 in2 IH Q4H 11/01/15 01/23/18 02/23/16 History 2 Aspirin EC 81 mg PO DAILY 11/01/15 01/23/18 02/23/16 History 81mg Budesoni/Formotero 160-4.5(Nf) 2 inhalation IH BID 11/01/15 01/23/18 02/23/16 History [Symbicort 160-4.5 (Nf)] 2 Naproxen [Naprosyn] 500 mg PO BID 11/01/15 01/23/18 02/17/16 History 500mg methOCARBAMOL [Robaxin TAB] 750 mg PO Q12H PRN 11/01/15 01/23/18 02/23/16 History 750mg oxyCODONE [Roxicodone] 20 mg PO QID 11/01/15 01/23/18 02/23/16 History 20mg Divalproex ER [Depakote ER] 500 mg PO BID tablet 0401/23/18 02/23/16 Rx 500mg ALBUTEROL Inhaler (OR & NICU) 2 puff IH QID PRN #1 inhalation 02/18/16 01/23/18 02/23/16 Rx [ProAir HFA Inhaler] 2 Albuterol Sulfate [Ventolin Hfa] 1 puff IH Q4H PRN #1 hfa.aer.ad 01/21/18 01/23/18 Unknown Rx Azithromycin [Zithromax Z-BARBIE] 250 mg PO QDAY #1 pack 01/21/18 01/23/18 Unknown Rx Bacitracin Zinc Oint [Antibiotic 1 applicatio TP BID #1 tube 01/21/18 01/23/18 Unknown Rx Oint] predniSONE [Deltasone] 20 mg PO QDAY #5 tab 01/21/18 01/23/18 Unknown Rx QUEtiapine [SEROquel] 200 mg PO QHS 01/24/18 01/24/18 Unknown History Acetaminophen/Codeine [Tylenol 1 tab PO Q6H PRN #12 tab 05/26/18 Unknown Rx /Codeine # 3 tab] Cephalexin [Keflex] 500 mg PO TID #30 capsule 05/26/18 Unknown Rx ED Physical Exam - General Limitations: No Limitations General appearance: alert, in no apparent distress - Head Head exam: Present: atraumatic, normocephalic - Eye Eye exam: Present: normal appearance - ENT ENT exam: Present: mucous membranes moist - Neck Neck exam: Present: normal inspection - Respiratory Respiratory exam: Present: normal lung sounds bilaterally. Absent: respiratory distress - Cardiovascular Cardiovascular Exam: Present: regular rate, normal rhythm. Absent: systolic murmur, diastolic murmur, rubs, gallop - GI/Abdominal GI/Abdominal exam: Present: soft, normal bowel sounds. Absent: distended, tenderness, guarding - Extremities Exam Extremities exam: Present: normal inspection - Back Exam Back exam: Present: normal inspection - Neurological Exam Neurological exam: Present: alert, oriented X3 - Psychiatric Psychiatric exam: Present: flat affect. Absent: homicidal ideation, suicidal ideation - Expanded Psychiatric Exam Expanded Focused psych exam: Present: pressured speech, delusional, paranoid, flight of ideas, loose associations - Skin Skin exam: Present: warm, dry, intact, normal color. Absent: rash ED Course Vital Signs 01/07/19 01/07/19 00:06 01:32 Temperature 99.0 F 98.4 F Pulse Rate 106 H 100 H Respiratory 18 18 Rate Blood Pressure 136/78 Blood Pressure 132/74 [Left] O2 Sat by Pulse 97 98 Oximetry - Reevaluation(s) Reevaluation #1: Patient placed on 1013. Labs will be done. 01/07/19 00:27 Mental health evaluated the patient and we'll have psychiatry see the patient the morning. 01/07/19 01:49 ED Medical Decision Making - Lab Data Result diagrams: 01/07/19 00:24 01/07/19 00:24 - Medical Decision Making Patient is a 58-year-old female that presents to emergency room with symptoms of acute psychosis. Patient laced on a 1013. Patient will remain in the ER until evaluated by psychiatry and cleared for transfer to appropriate psychiatric facility. Patient's labs unremarkable Except for asymptomatic pyuria. Patient does not have an active UTI and does not require antibiotic therapy. Patient is medically cleared. - Differential Diagnosis acute psychosis. Critical care attestation.: If time is entered above; I have spent that time in minutes in the direct care of this critically ill patient, excluding procedure time. ED Disposition Clinical Impression: Acute psychosis, Delusions Disposition: [id number]/TX-65 PSY HOSP/PSY UNIT Is pt being admited?: No Does the pt Need Aspirin: No Condition: Stable Additional Instructions: Patient is medically cleared Referrals: COLLIN WRIGHT MD [Primary Care Provider] - 3-5 Days Time of Disposition: 01:51
[2019-01-07] MEDS ORDERED: ATROVENT IH ONE (00:36)
[2019-01-07 00:37] LABS: Basophils % (Auto) 0.4 % (0.0-1.8); Eosinophils # (Auto) 0.1 K/mm3 (0.0-0.4); Eosinophils % (Auto) 1.2 % (0.0-4.3); Hematocrit 39.9 % (30.3-42.9); Hemoglobin 13.8 gm/dl (10.1-14.3); Lymphocytes # (Auto) 2.7 K/mm3 (1.2-5.4); Lymphocytes % (Auto) 25.5 % (13.4-35.0); Mean Corpuscular HGB Conc 35 % (30-34); Mean Corpuscular Volume 94 fl (79-97); Monocytes # (Auto) 0.7 K/mm3 (0.0-0.8); Monocytes % (Auto) 6.6 % (0.0-7.3); Platelet Count 227 K/mm3 (140-440); Red Blood Count 4.24 M/mm3 (3.65-5.03); Red Cell Distribution Width 13.6 % (13.2-15.2)
[2019-01-07 01:13] LABS: Calcium 9.7 mg/dL (8.4-10.2)
[2019-01-07 01:23] LABS: Bacteria,Urine 1+ /HPF (Negative); Bilirubin,Urine NEG (Negative); Blood,Urine NEG (Negative); Color,Urine Yellow (Yellow); Mucus,Urine 1+ /HPF; Protein,Urine <15 mg/dL mg/dL (Negative)
[2019-01-07 01:28] LABS: Amphetamine Screen,Urine PRESUMPTIVE NEGATIVE; Benzodiazepines Screen,Urine PRESUMPTIVE NEGATIVE; Cocaine Screen,Urine PRESUMPTIVE NEGATIVE; Methadone Screen,Urine PRESUMPTIVE NEGATIVE; Opiate Screen,Urine PRESUMPTIVE NEGATIVE
[2019-01-07 01:58] LABS: Cannabinoid Screen,Urine PRESUMPTIVE POSITIVE
[2019-01-07 07:52] VITALS: BP 104/75
== END 2019-01-07 09:41 ==
LOC: ED 23:52
DX: F31.9 Bipolar disorder, unspecified (principal); F22 Delusional disorders; I50.9 Heart failure, unspecified; M19.90 Unspecified osteoarthritis, unspecified site; J44.9 Chronic obstructive pulmonary disease, unspecified; G89.29 Other chronic pain; M25.562 Pain in left knee; M25.561 Pain in right knee; Z90.710 Acquired absence of both cervix and uterus; F17.200 Nicotine dependence, unspecified, uncomplicated; Z79.82 Long term (current) use of aspirin; Z79.899 Other long term (current) drug therapy; Z88.6 Allergy status to analgesic agent; Z88.2 Allergy status to sulfonamides; Z88.8 Allergy status to other drugs, medicaments and biological substances
CPT/HCPCS: 36415; 80048; 80307; 81001; 85025; 87086; 99284; G0480; 80320

== ENCOUNTER 2019-01-07 08:17 | Inpatient (IN) | payer MEDICARE ==
[2019-01-07] MEDS ORDERED: ATIVAN IM PRN (09:23)
[2019-01-07] MEDS: NEURONTIN PO SCH ×4 (11:32→23:41)
[2019-01-07] MEDS ORDERED: NON-FORMULARY (Clonazepam [Klonopin] 1 MG) PO SCH (14:00)
[2019-01-07] MEDS: SINEquan PO SCH (23:42)
[2019-01-08] MEDS: NEURONTIN PO SCH ×4 (09:32→21:06)
[2019-01-08] MEDS: HABITROL TD SCH (09:32)
[2019-01-08] MEDS ORDERED: PROAIR IH PRN (10:05)
--- NOTE | 2019-01-08 10:54 | Consultation ---
History of Present Illness - Reason for Consult Consult date: 01/08/19 Medical evaluation for Inpatient [facility] - History of Present Illness Patient is a 58 yo woman with a history of Tobacco dependency, Bipolar and Schizophrenia disorder who presented to [facility] ED with AMS. She is a poor hist orian because she is in acute Bipolar crisis and speaks on a tangent and hard to re-direct without her getting argumentative. PMH: as hpi PSH: x 2, denies Hysterectomy SH: 1 ppd tobacco smoking, no alcohol or illegal drug abuse FH: mother of brain tumor ROS: Constitutional: denies: fever ENT: denies: throat or neck pain Respiratory: denies: cough, shortness of breath Cardiovascular: denies: chest pain Endocrine: denies unexplained weight loss or gain Gastrointestinal: denies: abdominal pain, nausea Genitourinary: denies: dysuria Rectal: denies no incontinence, no bleeding, no itching, no discharge Musculoskeletal: denies swelling, myaglia, muscle weakness Skin: denies: rash Neurological: denies: headache Hematological/Lymphatic: denies: easy bleeding or easy bruising Allergic/Immunologic: no urticaria, no allergic rhinitis, no anaphylaxis Psych: denies sadness because of grandkids or hopelessness, SI/HI, +paranoid, +auditory hallucinations. Medications and Allergies Allergies Allergy/AdvReac Type Severity Reaction Status Date / Time haloperidol [From Haldol] Allergy Swelling Verified 02/17/16 23:27 haloperidol lactate Allergy Swelling Verified 06/13/13 23:08 [From Haldol] ibuprofen [From Motrin] Allergy Swelling Verified 02/17/16 23:27 Sulfa (Sulfonamide Allergy Unknown Verified 02/17/16 23:27 Antibiotics) ziprasidone HCl [From Geodon] Allergy Unknown Verified 02/17/16 23:27 ziprasidone mesylate Allergy Unknown Verified 02/17/16 23:26 [From Geodon] Home Medications Medication Instructions Recorded Confirmed Last Taken Type Doxepin [SINEquan] 25 mg PO QHS 01/14/15 01/07/19 02/23/16 History 25mg Gabapentin [Neurontin] 300 mg PO QID 01/14/15 01/07/19 02/23/16 History 300mg clonazePAM [KlonoPIN] 1 mg PO TID 01/14/15 01/07/19 02/03/16 History 1mg Albuterol Sulfate [Ventolin HFA] 2 in2 IH Q4H 11/01/15 01/07/19 02/23/16 History 2 Aspirin EC 81 mg PO DAILY 11/01/15 01/07/19 02/23/16 History 81mg Budesoni/Formotero 160-4.5(Nf) 2 inhalation IH BID 11/01/15 01/07/19 02/23/16 History [Symbicort 160-4.5 (Nf)] 2 Naproxen [Naprosyn] 500 mg PO BID 11/01/15 01/07/19 02/17/16 History 500mg methOCARBAMOL [Robaxin TAB] 750 mg PO Q12H PRN 11/01/15 01/07/19 02/23/16 History 750mg oxyCODONE [Roxicodone] 20 mg PO QID 11/01/15 01/07/19 02/23/16 History 20mg Divalproex ER [Depakote ER] 500 mg PO BID tablet 11/02/15 01/07/19 01/07/19 11:00 Rx ALBUTEROL Inhaler (OR & NICU) 2 puff IH QID PRN #1 inhalation 02/18/16 01/07/19 02/23/16 Rx [ProAir HFA Inhaler] 2 Albuterol Sulfate [Ventolin Hfa] 1 puff IH Q4H PRN #1 hfa.aer.ad 01/21/18 01/07/19 Unknown Rx Azithromycin [Zithromax Z-BARBIE] 250 mg PO QDAY #1 pack 01/21/18 01/07/19 Unknown Rx Bacitracin Zinc Oint [Antibiotic 1 applicatio TP BID #1 tube 01/21/18 01/07/19 Unknown Rx Oint] predniSONE [Deltasone] 20 mg PO QDAY #5 tab 01/21/18 01/07/19 Unknown Rx QUEtiapine [SEROquel] 200 mg PO QHS 01/24/18 01/07/19 Unknown History Acetaminophen/Codeine [Tylenol 1 tab PO Q6H PRN #12 tab 05/26/18 01/07/19 Unknown Rx /Codeine # 3 tab] Cephalexin [Keflex] 500 mg PO TID #30 capsule 05/26/18 01/07/19 Unknown Rx Active Meds: Active Medications Acetaminophen (Tylenol) 1,000 mg PO Q6H PRN PRN Reason: Pain, Mild (1-3) Albuterol (Proventil) 2.5 mg IH Q4H PRN PRN Reason: Shortness Of Breath Clonazepam (Klonopin) 1 mg PO TID [facility] Last Admin: 01/08/19 07:57 Dose: 1 mg Documented by: Divalproex Sodium (Depakote Er) 500 mg PO BID [facility] Last Admin: 01/08/19 09:32 Dose: 500 mg Documented by: Doxepin HCl (Sinequan) 25 mg PO QHS [facility] Last Admin: 01/07/19 23:42 Dose: 25 mg Documented by: Gabapentin (Neurontin) 300 mg PO QID [facility] Last Admin: 01/08/19 09:32 Dose: 300 mg Documented by: Lorazepam (Ativan) 2 mg IM Q6H PRN PRN Reason: Agitation Nicotine (Habitrol) 21 mg TD QDAY [facility] Last Admin: 01/08/19 09:32 Dose: 21 mg Documented by: Olanzapine (Zyprexa Zydis) 5 mg PO Q6H PRN PRN Reason: Agitation Last Admin: 01/08/19 03:23 Dose: 5 mg Documented by: Quetiapine Fumarate (Seroquel) 200 mg PO QHS [facility] Last Admin: 01/07/19 21:49 Dose: 200 mg Documented by: Exam - Physical Exam Narrative exam: Gen: WDWN, obese, bmi 40, NAD, Awake, Alert, Orientated HEENT: NCAT, EOMI, PERRL, OP Clear Neck: supple, no adenopathy, no thyromegaly, no JVD CVS/Heart: RRR, normal S1S2, pulses present bilaterally Chest/Lungs: CTA B, Symmetrical chest expansion, good air entry bilaterally GI/Abdomen: soft, NTND, good bowel sounds, no guarding or rebound /Bladder: no suprapubic tenderness, no CVA or paraspinal tenderness Extermity/Skin: no c/c/e, no obvious rash MSK: FROM x 4 Neuro: CN 2-12 grossly intact, no new focal deficits Psych: manic, tangent, random talk, auditory hallucinations, paranoia poor insight and judgement, argumentative - Constitutional Vitals: Temp Pulse Resp BP Pulse Ox 99.3 F 80 18 120/78 92 01/08/19 08:46 01/08/19 08:46 01/08/19 08:46 01/08/19 08:46 01/08/19 08:46 Assessment and Plan Patient is a 58 yo woman with a history of Tobacco dependency, Bipolar and Schizophrenia disorder who presented to [facility] ED with AMS. She is a poor historian because she is in acute Bipolar crisis and speaks on a tangent and hard to re-direct without her getting argumentative. UTI uncomplicated: oral levaquin x 3 days Acute Bipolar crisis with robb, suspect she has Schizoaffective disorder: psych for mental health stabilization, she takes Depakote 500mg po bid, and Klonpin 0.5mg tid. Acute metabolic encephalopathy: treat the UTI Tobacco dependency: [facility] on stopping, she became argumentive Morbid Obesity, bmi 40: [facility] on lifestyle modifications Ok for mental health stabilization on [facility] Call me with any questions, will sign off.
[2019-01-08] MEDS: PROVENTIL IH PRN ×2 (11:07→18:37)
[2019-01-08] MEDS: LEVAQUIN PO SCH (11:56)
[2019-01-08 14:00] LABS: Basophils % (Auto) 0.7 % (0.0-1.8); Eosinophils # (Auto) 0.2 K/mm3 (0.0-0.4); Eosinophils % (Auto) 3.3 % (0.0-4.3); Hematocrit 39.1 % (30.3-42.9); Hemoglobin 13.4 gm/dl (10.1-14.3); Lymphocytes # (Auto) 1.2 K/mm3 (1.2-5.4); Lymphocytes % (Auto) 27.3 % (13.4-35.0); Mean Corpuscular HGB Conc 34 % (30-34); Mean Corpuscular Volume 95 fl (79-97); Monocytes # (Auto) 0.4 K/mm3 (0.0-0.8); Monocytes % (Auto) 9.8 % (0.0-7.3); Platelet Count 155 K/mm3 (140-440); Red Blood Count 4.13 M/mm3 (3.65-5.03); Red Cell Distribution Width 13.8 % (13.2-15.2)
[2019-01-08 14:19] LABS: Alanine Aminotransferase 7 units/L (7-56); Albumin 3.7 g/dL (3.9-5); BUN/Creatinine Ratio 19; Blood Urea Nitrogen 15 mg/dL (7-17); Calcium 8.9 mg/dL (8.4-10.2); Chol/HDL Ratio 3.38 %; HDL Cholesterol 36 mg/dL (40-59); Hemolysis Index 26; LDL Cholesterol,Direct 67 mg/dL (50-130)
[2019-01-08] MEDS: SINEquan PO SCH (21:06)
[2019-01-09] MEDS: HABITROL TD SCH (09:41)
[2019-01-09] MEDS: LEVAQUIN PO SCH (09:43)
[2019-01-09] MEDS: NEURONTIN PO SCH ×4 (09:43→21:03)
--- NOTE | 2019-01-09 11:23 | History and Physical Report ---
GP History & Physical - History of Present Illness Date of admission: 01/07/19 Date of Examination: 01/08/19 Reason for Admission: Impaired reality testing, Psychopathology interference, Unable to care for self Chief Complaint: I have mental breakdown History of Present Illness: The patient is a 58-year-old female with history of MDD, Paranoid Schizophrenia brought to the ER by EMS. Family called EMS to bring the patient to hospital for bizarre behaviors. In my interview with the patient she reports that she is having a mental breakdown. She states she was having arguments with her family and neighbors. and believes her neighbors are out to get her. She feels unsafe outside the hospital. She also endorses auditory hallucinations. She states that the voices torment and make derogatory comments towards her. She is distressed by these voices and finds it difficult to sleep at night. She endorses suicidal thoughts with intent but denies homicidal thoughts. She denies abusing substances and states that she finds Seroquel beneficial for the voices. She consents to medication adjustment. Legal Status: Voluntary Patient Problems: Current Active Problems Schizoaffective disorder, bipolar type (Acute) Reaction to Hospitalization: Accepting Substance History - Substance History Drug Use: none Hx Tobacco Use: Yes Alcohol Use: No Past psychiatric history - Past Medical History Past Medical History: arthritis, COPD - past Psychiatric treatment and history Psych: Bipolar, Schizophrenia - Social History Social history: lives with family Review of Systems All systems: negative Psychiatric: sleep disturbances, suicidal ideation, hallucinations, paranoia, depression, irritability Results - Results Labs/Vitals: Laboratory Last Values WBC 4.6 K/mm3 (4.5-11.0) 01/08/19 13:46 RBC 4.13 M/mm3 (3.65-5.03) 01/08/19 13:46 Hgb 13.4 gm/dl (10.1-14.3) 01/08/19 13:46 Hct 39.1 % (30.3-42.9) 01/08/19 13:46 MCV 95 fl (79-97) 01/08/19 13:46 MCH 33 pg (28-32) H 01/08/19 13:46 MCHC 34 % (30-34) 01/08/19 13:46 RDW 13.8 % (13.2-15.2) 01/08/19 13:46 Plt Count 155 K/mm3 (140-440) 01/08/19 13:46 Lymph % (Auto) 27.3 % (13.4-35.0) 01/08/19 13:46 [place] % (Auto) 9.8 % (0.0-7.3) H 01/08/19 13:46 Eos % (Auto) 3.3 % (0.0-4.3) 01/08/19 13:46 Baso % (Auto) 0.7 % (0.0-1.8) 01/08/19 13:46 Lymph # 1.2 K/mm3 (1.2-5.4) 01/08/19 13:46 [place] # 0.4 K/mm3 (0.0-0.8) 01/08/19 13:46 Eos # 0.2 K/mm3 (0.0-0.4) 01/08/19 13:46 Baso # 0.0 K/mm3 (0.0-0.1) 01/08/19 13:46 Seg Neutrophils % 58.9 % (40.0-70.0) 01/08/19 13:46 Seg Neutrophils # 2.7 K/mm3 (1.8-7.7) 01/08/19 13:46 Sodium 143 mmol/L (137-145) 01/08/19 13:46 Potassium 3.8 mmol/L (3.6-5.0) 01/08/19 13:46 Chloride 103.7 mmol/L (98-107) 01/08/19 13:46 Carbon Dioxide 25 mmol/L (22-30) 01/08/19 13:46 18 mmol/L 01/08/19 13:46 BUN 15 mg/dL (7-17) 01/08/19 13:46 0.8 mg/dL (0.7-1.2) 01/08/19 13:46 Estimated GFR > 60 ml/min 01/08/19 13:46 19 % 01/08/19 13:46 Glucose 123 mg/dL (65-100) H 01/08/19 13:46 POC Glucose 124 (70-105) H 01/08/19 11:29 4.9 % (4-6) 01/08/19 13:46 Calcium 8.9 mg/dL (8.4-10.2) 01/08/19 13:46 0.20 mg/dL (0.1-1.2) 01/08/19 13:46 AST 15 units/L (5-40) 01/08/19 13:46 ALT 7 units/L (7-56) 01/08/19 13:46 54 units/L (35-129) 01/08/19 13:46 7.4 g/dL (6.3-8.2) 01/08/19 13:46 3.7 g/dL (3.9-5) L 01/08/19 13:46 1.0 % 01/08/19 13:46 Triglycerides 99 mg/dL (2-149) 01/08/19 13:46 Cholesterol 122 mg/dL (50-199) 01/08/19 13:46 67 mg/dL (50-130) 01/08/19 13:46 36 mg/dL (40-59) L 01/08/19 13:46 3.38 % 01/08/19 13:46 Last Vital Signs Temp 99.3 F 01/08/19 08:46 Pulse 88 01/08/19 22:00 Resp 18 01/08/19 22:00 BP 107/79 01/08/19 22:00 Pulse Ox 92 01/08/19 08:46 Physical Examination - Constitutional Vitals: Vital Signs Temp Pulse Resp BP Pulse Ox 99.3 F 88 18 107/79 92 01/08/19 08:46 01/08/19 22:00 01/08/19 22:00 01/08/19 22:00 01/08/19 08:46 General appearance: Present: no acute distress, well-nourished - EENT Eyes: Present: PERRL, EOM intact, irregular pupil ENT: clear oral mucosa - Neck Neck: Present: supple, normal ROM - Respiratory Respiratory effort: normal Mental Status Exam - Vital signs Last Vital Signs Temp 99.3 F 01/08/19 08:46 Pulse 88 01/08/19 22:00 Resp 18 01/08/19 22:00 BP 107/79 01/08/19 22:00 Pulse Ox 92 01/08/19 08:46 - Exam Orientation: time, place, person Affect: agitated Mood: congruent with affect Thought content: paranoia Thought Process: Tangential, Flight of Ideas Perceptions: hallucinations Speech: pressured Concentration: distractible, unable to pay attention Motor activity: tense, restless, agitated Level of consciousness: alert Memory: Intact Sleep Symptoms: Difficulty Falling Asleep Interaction: irritable Mini mental status exam(if necessary): 24-30 Assessment and Plan - Psychiatric problem (1) Schizoaffective disorder, bipolar type Current Visit: Yes Status: Acute plan to address problem: Patient will be admitted for inpatient psychiatric evaluation, medication adjustment and close monitoring The patient's behavior, mood, sleep and appetite will be closely monitored. Patient will be enrolled in individual and group therapeutic sessions and encouraged to attend. Patient will be provided with a safe and structured environment. Patient's physical health needs will be addressed by the Hospitalist. Social Assessment will be completed and the Professor Of [employer] Studies will work with patient and family to ensure a suitable and safe disposition Medication adjustment will be made as clinically indicated The patient agreed on the treatment plan, understood the risk, benefit, alternative treatment, potential consequence of no treatment, and gave informed consent. Physician Certification - Certification Statement Physician Certification Statement: This is an acknowledgement statement that MORRIS CASTILLO is a 58 year old F who requires inpatient psychiatric admission for treatment which could reasonably be expected to improve the patient's condition for Schizoaffective disorder, bipolar type. Estimated period of time patient will need to remain in the hospital: 7 days Plan for post-hospital care: Out-patient care.
--- NOTE | 2019-01-09 12:01 | Progress Note ---
Subjective Date of service: 01/09/19 Principal diagnosis: Schizoaffective disorder Subjective Comment: The patient is paranoid, states that her neighbours are out to get her. She endorses distressing auditory hallucinations. She is anxious and unable to relax. Reports racing thoughts. She feels unsafe being outside the hospital. She wants something stronger for her anxiety and pain. She is not safe for discharge. She is compliant with medications and denies side effects. Objective - Criteria for Continued Treatment Criteria for Continued Treatment: Improving Level of Functioning, Understanding Diagnosis and need for Medication, Improving Treatment / Medication Compliance, Confronting Denial of Illness, Stablizing Level of Functioning, Improving Emotional/Socia - Mental Status Mental Status: Alert - Objective Observation Participation Level: Moderate Assessment and Plan - Patient Problems (1) Schizoaffective disorder, bipolar type Current Visit: Yes Status: Acute Plan to address problem: Patient will be admitted for inpatient psychiatric evaluation, medication adjustment and close monitoring The patient's behavior, mood, sleep and appetite will be closely monitored. Patient will be enrolled in individual and group therapeutic sessions and encouraged to attend. Patient will be provided with a safe and structured environment. Patient's physical health needs will be addressed by the Hospitalist. Social Assessment will be completed and the Room Service Supervisor will work with patient and family to ensure a suitable and safe disposition Medication adjustment will be made as clinically indicated: Will gradually decrease and discontinue Clonazepam Will increase Seroquel to 300mg qhs for psychosis and mood Check Valproic Acid level Wednesday am and adjust the dose. The patient agreed on the treatment plan, understood the risk, benefit, alternative treatment, potential consequence of no treatment, and gave informed consent.
[2019-01-09] MEDS: TYLENOL PO PRN (19:57)
[2019-01-09] MEDS: SINEquan PO SCH (21:04)
[2019-01-10] MEDS: LEVAQUIN PO SCH (09:19)
[2019-01-10] MEDS: HABITROL TD SCH (09:20)
[2019-01-10] MEDS: NEURONTIN PO SCH ×3 (09:20→18:15)
--- NOTE | 2019-01-10 09:28 | Progress Note ---
Subjective Date of service: 01/10/19 Principal diagnosis: Schizoaffective disorder Subjective Comment: The patient reports feeling anxious and unable to relax. She continues to ask for something stronger for anxiety and pain. She looks comfortable and does not appear to be in any obvious discomfort. She feels unsafe being outside the hospital. She is compliant with medications and denies side effects. Objective - Criteria for Continued Treatment Criteria for Continued Treatment: Improving Level of Functioning, Stablizing Level of Functioning, Improving Emotional/Socia - Mental Status Mental Status: Alert - Objective Observation Participation Level: Full Assessment and Plan - Patient Problems (1) Schizoaffective disorder, bipolar type Current Visit: Yes Status: Acute Plan to address problem: Patient will be admitted for inpatient psychiatric evaluation, medication adjustment and close monitoring The patient's behavior, mood, sleep and appetite will be closely monitored. Patient will be enrolled in individual and group therapeutic sessions and encouraged to attend. Patient will be provided with a safe and structured environment. Patient's physical health needs will be addressed by the Hospitalist. Social Assessment will be completed and the Burial Vault Deliverer And Installer will work with patient and family to ensure a suitable and safe disposition Medication adjustment will be made as clinically indicated: Will continue Clonazepam Will continue Seroquel 300mg qhs for psychosis and mood Check Valproic Acid level tomorrow am and adjust the dose. The patient agreed on the treatment plan, understood the risk, benefit, alternative treatment, potential consequence of no treatment, and gave informed consent.
[2019-01-11] MEDS: NEURONTIN PO SCH ×5 (01:11→21:15)
[2019-01-11] MEDS: SINEquan PO SCH ×2 (01:11→21:16)
--- NOTE | 2019-01-11 08:54 | Progress Note ---
Subjective Date of service: 01/11/19 Principal diagnosis: Schizoaffective disorder Subjective Comment: The patient is calm and pleasant this morning. She states that today is a good day, that she woke up feeling good. She feels that she is on the right medications as she feels calm, relaxed and not having racing thoughts. She completely denies SI/HI/AVH/paranoia. She is compliant with medications and denies side effects. Awaiting result of Serum Valproic acid level ordered for this morning. Will consider discharging patient in am tomorrow if she continues to do well. Assessment and Plan - Patient Problems (1) Schizoaffective disorder, bipolar type Current Visit: Yes Status: Acute Plan to address problem: Patient will be admitted for inpatient psychiatric evaluation, medication adjustment and close monitoring The patient's behavior, mood, sleep and appetite will be closely monitored. Patient will be enrolled in individual and group therapeutic sessions and encouraged to attend. Patient will be provided with a safe and structured environment. Patient's physical health needs will be addressed by the Hospitalist. Social Assessment will be completed and the Community Outreach Manager will work with patient and family to ensure a suitable and safe disposition Medication adjustment will be made as clinically indicated: Will continue Clonazepam Will continue Seroquel 300mg qhs for psychosis and mood Check Valproic Acid this am and adjust the dose. The patient agreed on the treatment plan, understood the risk, benefit, alternative treatment, potential consequence of no treatment, and gave informed consent.
[2019-01-11] MEDS: HABITROL TD SCH (09:02)
[2019-01-11] MEDS: TYLENOL PO PRN (18:46)
[2019-01-12] MEDS: TYLENOL PO PRN ×2 (03:55→17:15)
[2019-01-12] MEDS: NEURONTIN PO SCH ×4 (09:13→21:00)
[2019-01-12] MEDS: HABITROL TD SCH (09:15)
--- NOTE | 2019-01-12 09:19 | Progress Note ---
Subjective Date of service: 01/12/19 Principal diagnosis: Schizoaffective disorder Subjective Comment: The patient is not doing well today. She is oppositional, paranoid, disorganized and somewhat confused. She continues to focus on being given Percocet or Oxycodone. She looks comfortable and does not appear to be in obvious pain. She completely denies SI/HI/AVH/paranoia. She is compliant with medications and denies side effects. She is not safe for discharge as she is still paranoid, confused and disorganized. Objective - Criteria for Continued Treatment Criteria for Continued Treatment: Stablizing Level of Functioning, Improving Emotional/Socia - Mental Status Mental Status: Alert - Objective Observation Participation Level: Full Assessment and Plan - Patient Problems (1) Schizoaffective disorder, bipolar type Current Visit: Yes Status: Acute Plan to address problem: Patient will be admitted for inpatient psychiatric evaluation, medication adjustment and close monitoring The patient's behavior, mood, sleep and appetite will be closely monitored. Patient will be enrolled in individual and group therapeutic sessions and encouraged to attend. Patient will be provided with a safe and structured environment. Patient's physical health needs will be addressed by the Hospitalist. Social Assessment will be completed and the Zipper Repairer will work with patient and family to ensure a suitable and safe disposition Medication adjustment will be made as clinically indicated: Will continue Clonazepam Will increase Seroquel to 300mg bid for psychosis and mood Will increase Depakote to 750mg bid and Neurotin to 600mg qid for mood stabilization and mood Will discontinue Doxepin - not indicated The patient agreed on the treatment plan, understood the risk, benefit, alternative treatment, potential consequence of no treatment, and gave informed consent.
--- NOTE | 2019-01-13 09:13 | Progress Note ---
Subjective Date of service: 01/13/19 Principal diagnosis: Schizoaffective disorder Subjective Comment: The patient is calmer today. She slept well last night and appetite is good. She is tolerating her new medication regime. She completely denies SI/HI/AVH/paranoia. She is compliant with medications and denies side effects. Objective - Criteria for Continued Treatment Criteria for Continued Treatment: Improving Level of Functioning, Stablizing Level of Functioning, Improving Emotional/Socia - Mental Status Mental Status: Alert - Objective Observation Participation Level: Moderate Assessment and Plan - Patient Problems (1) Schizoaffective disorder, bipolar type Current Visit: Yes Status: Acute Plan to address problem: Patient will be admitted for inpatient psychiatric evaluation, medication adjustment and close monitoring The patient's behavior, mood, sleep and appetite will be closely monitored. Patient will be enrolled in individual and group therapeutic sessions and encouraged to attend. Patient will be provided with a safe and structured environment. Patient's physical health needs will be addressed by the Hospitalist. Social Assessment will be completed and the Ticket Printer will work with patient and family to ensure a suitable and safe disposition Medication adjustment will be made as clinically indicated: Will continue Clonazepam Will increase Seroquel to 300mg bid for psychosis and mood Will continue Depakote 750mg bid and Neurotin 600mg qid for mood stabilization and pain Check Valproic acid level on Wednesday am The patient agreed on the treatment plan, understood the risk, benefit, alternative treatment, potential consequence of no treatment, and gave informed consent.
[2019-01-13] MEDS: NEURONTIN PO SCH ×4 (09:31→22:02)
[2019-01-13] MEDS: HABITROL TD SCH (09:35)
[2019-01-13] MEDS: TYLENOL PO PRN ×2 (12:06→18:29)
[2019-01-14] MEDS: TYLENOL PO PRN ×2 (04:42→11:46)
[2019-01-14] MEDS: HABITROL TD SCH (09:41)
[2019-01-14] MEDS: NEURONTIN PO SCH ×3 (09:42→18:22)
--- NOTE | 2019-01-14 20:17 | Progress Note ---
Subjective Date of service: 01/14/19 Principal diagnosis: Schizoaffective disorder Subjective Comment: No new development. The patient is calm. She slept well last night and appetite is good. She is tolerating her new medication regime. She completely denies SI/HI/AVH/paranoia. She is compliant with medications and denies side effects. Objective - Criteria for Continued Treatment Criteria for Continued Treatment: Improving Level of Functioning, Stablizing Level of Functioning, Improving Emotional/Socia - Mental Status Mental Status: Alert - Objective Observation Participation Level: Moderate Assessment and Plan - Patient Problems (1) Schizoaffective disorder, bipolar type Current Visit: Yes Status: Acute Plan to address problem: Patient will be admitted for inpatient psychiatric evaluation, medication adj ustment and close monitoring The patient's behavior, mood, sleep and appetite will be closely monitored. Patient will be enrolled in individual and group therapeutic sessions and encouraged to attend. Patient will be provided with a safe and structured environment. Patient's physical health needs will be addressed by the Hospitalist. Social Assessment will be completed and the Shipping And Receiving Supervisor will work with patient and family to ensure a suitable and safe disposition Medication adjustment will be made as clinically indicated: Will continue Clonazepam Will increase Seroquel to 300mg bid for psychosis and mood Will continue Depakote 750mg bid and Neurotin 600mg qid for mood stabilization and pain Check Valproic acid level on Wednesday am The patient agreed on the treatment plan, understood the risk, benefit, alternative treatment, potential consequence of no treatment, and gave informed consent.
[2019-01-15] MEDS: NEURONTIN PO SCH ×5 (00:05→21:41)
--- NOTE | 2019-01-15 08:03 | Progress Note ---
Subjective Date of service: 01/15/19 Principal diagnosis: Schizoaffective disorder Subjective Comment: No new development. The patient is calm. She slept well last night and appetite is good. She is tolerating her new medication regime. She completely denies SI/HI/AVH/paranoia. She is compliant with medications and denies side effects. Will plan to discharge in am tomorrow. Objective - Criteria for Continued Treatment Criteria for Continued Treatment: Improving Level of Functioning, Stablizing Level of Functioning, Improving Emotional/Socia - Mental Status Mental Status: Alert - Objective Observation Participation Level: Full Assessment and Plan - Patient Problems (1) Schizoaffective disorder, bipolar type Current Visit: Yes Status: Acute Plan to address problem: Patient will be admitted for inpatient psychiatric evaluation, medication adjustment and close monitoring The patient's behavior, mood, sleep and appetite will be closely monitored. Patient will be enrolled in individual and group therapeutic sessions and encouraged to attend. Patient will be provided with a safe and structured environment. Patient's physical health needs will be addressed by the Hospitalist. Social Assessment will be completed and the Framing Mechanic will work with patient and family to ensure a suitable and safe disposition Medication adjustment will be made as clinically indicated: Will continue Clonazepam Will continue Seroquel 300mg bid for psychosis and mood Will continue Depakote 750mg bid and Neurotin 600mg qid for mood stabilization and pain Check Valproic acid level on Wednesday am The patient agreed on the treatment plan, understood the risk, benefit, alternative treatment, potential consequence of no treatment, and gave informed consent.
[2019-01-15] MEDS: TYLENOL PO PRN ×3 (08:55→23:03)
[2019-01-15] MEDS: HABITROL TD SCH (09:02)
[2019-01-15 22:51] VITALS: BP 102/66
[2019-01-16] MEDS: TYLENOL PO PRN (06:15)
--- NOTE | 2019-01-16 09:14 | Discharge Summary ---
Providers - Providers Date of Admission: 01/07/19 09:06 Date of discharge: 01/16/19 Attending physician: JW COELHO MD 01/08/19 10:32 Consult to Physician [CONS] Routine Comment: Consulting Provider: SHUBHAM CORREIA Physician Instructions: Reason For Exam: Consult Primary care physician: [facility], Hospitalization Reason for admission: Family called EMS to bring the patient to hospital for bizarre behaviors Admitting Diagnosis: F25.0 - SCHIZOAFFECTIVE DISORDER, BIPOLAR TYPE Condition: Good Hospital course: The patient was provided inpatient psychiatric treatment with safe and supportive environment, group therapy, individual counseling, psychiatric medic ation, medication adjustment, adverse effect monitor, medical evaluation, medical treatment, social service assessment, family/social support meeting, placement assessment and psycho-education. The patients mood, anxiety, thoughts, stress management skill, cognition, impulse/anger control, motivation, understanding of disease, compliance to treatment and appreciation on family/social support are improved and stabilized. At the time of discharge, the patient had no suicidal ideas, no homicidal ideas, no aggressive thoughts, no endangering behavior and no debilitating adverse effects. The patient agreed on the treatment plan, understood the risk, benefit, alternative treatment, potential consequence of no treatment, and gave informed consent. The patient was advised to be compliant with medications, not to use drugs and not to drink alcohol. The patient understands that if suicidal ideas, homicidal ideas, or any endangering thoughts arise, the patient should immediately seek for emergent assistance including but not limited to crisis hot line and emergency room. Follow up with out-patient Psychiatrist and PCP within 14 - 21 days of discharge. Disposition: DC- TO HOME OR SELFCARE Allergies/Adverse Reactions: Allergies haloperidol [From Haldol] Allergy (Verified 02/17/16 23:27) Swelling haloperidol lactate [From Haldol] Allergy (Verified 06/13/13 23:08) Swelling ibuprofen [From Motrin] Allergy (Verified 02/17/16 23:27) Swelling Sulfa (Sulfonamide Antibiotics) Allergy (Verified 02/17/16 23:27) Unknown ziprasidone HCl [From Geodon] Allergy (Verified 02/17/16 23:27) Unknown ziprasidone mesylate [From Geodon] Allergy (Verified 02/17/16 23:26) Unknown Vital Signs: Last Vital Signs Temp 98.2 F 01/15/19 20:16 Pulse 73 01/15/19 20:16 Resp 20 01/15/19 20:16 BP 102/66 01/15/19 20:16 Pulse Ox 96 01/15/19 20:16 Last Lab: Laboratory Last Values WBC 4.6 K/mm3 (4.5-11.0) 01/08/19 13:46 RBC 4.13 M/mm3 (3.65-5.03) 01/08/19 13:46 Hgb 13.4 gm/dl (10.1-14.3) 01/08/19 13:46 Hct 39.1 % (30.3-42.9) 01/08/19 13:46 MCV 95 fl (79-97) 01/08/19 13:46 MCH 33 pg (28-32) H 01/08/19 13:46 MCHC 34 % (30-34) 01/08/19 13:46 RDW 13.8 % (13.2-15.2) 01/08/19 13:46 Plt Count 155 K/mm3 (140-440) 01/08/19 13:46 Lymph % (Auto) 27.3 % (13.4-35.0) 01/08/19 13:46 [place] % (Auto) 9.8 % (0.0-7.3) H 01/08/19 13:46 Eos % (Auto) 3.3 % (0.0-4.3) 01/08/19 13:46 Baso % (Auto) 0.7 % (0.0-1.8) 01/08/19 13:46 Lymph # 1.2 K/mm3 (1.2-5.4) 01/08/19 13:46 [place] # 0.4 K/mm3 (0.0-0.8) 01/08/19 13:46 Eos # 0.2 K/mm3 (0.0-0.4) 01/08/19 13:46 Baso # 0.0 K/mm3 (0.0-0.1) 01/08/19 13:46 Seg Neutrophils % 58.9 % (40.0-70.0) 01/08/19 13:46 Seg Neutrophils # 2.7 K/mm3 (1.8-7.7) 01/08/19 13:46 Sodium 143 mmol/L (137-145) 01/08/19 13:46 Potassium 3.8 mmol/L (3.6-5.0) 01/08/19 13:46 Chloride 103.7 mmol/L (98-107) 01/08/19 13:46 Carbon Dioxide 25 mmol/L (22-30) 01/08/19 13:46 18 mmol/L 01/08/19 13:46 BUN 15 mg/dL (7-17) 01/08/19 13:46 0.8 mg/dL (0.7-1.2) 01/08/19 13:46 Estimated GFR > 60 ml/min 01/08/19 13:46 19 % 01/08/19 13:46 Glucose 123 mg/dL (65-100) H 01/08/19 13:46 POC Glucose 124 (70-105) H 01/08/19 11:29 4.9 % (4-6) 01/08/19 13:46 Calcium 8.9 mg/dL (8.4-10.2) 01/08/19 13:46 0.20 mg/dL (0.1-1.2) 01/08/19 13:46 AST 15 units/L (5-40) 01/08/19 13:46 ALT 7 units/L (7-56) 01/08/19 13:46 54 units/L (35-129) 01/08/19 13:46 7.4 g/dL (6.3-8.2) 01/08/19 13:46 3.7 g/dL (3.9-5) L 01/08/19 13:46 1.0 % 01/08/19 13:46 Triglycerides 99 mg/dL (2-149) 01/08/19 13:46 Cholesterol 122 mg/dL (50-199) 01/08/19 13:46 67 mg/dL (50-130) 01/08/19 13:46 36 mg/dL (40-59) L 01/08/19 13:46 3.38 % 01/08/19 13:46 Valproic Acid 66.1 ug/mL (50-100) 01/16/19 06:58 - Discharge Diagnoses (1) Schizoaffective disorder, bipolar type Status: Acute Core Measure Documentation - Palliative Care Palliative Care/ Comfort Measures: Not Applicable - Core Measures Any of the following diagnoses?: none - VTE Discharge Requirements Deep Vein Thrombosis/Pulmonary Embolism Present on Admission: No Has pt received <5 days of overlap therapy or INR<2.0: No Anticoagulant overlap therapy prescribed at discharge: No Contraindication No Overlap Therapy order at DC: Not Indicated Exam - Constitutional Vitals: Temp Pulse Resp BP Pulse Ox 98.2 F 73 20 102/66 96 01/15/19 20:16 01/15/19 20:16 01/15/19 20:16 01/15/19 20:16 01/15/19 20:16 General appearance: Present: no acute distress, well-nourished - EENT Eyes: Present: PERRL, EOM intact ENT: hearing intact, clear oral mucosa - Neck Neck: Present: supple, normal ROM Plan Activity: no restrictions Weight Bearing Status: Full Weight Bearing Diet: regular Follow up with: COLLIN WRIGHT MD [Primary Care Provider] - 7 Days Prescriptions: Divalproex ER [Depakote ER] 250 mg PO BID 30 Days tablet Divalproex ER [Depakote ER] 500 mg PO BID 30 Days tablet Nicotine [Habitrol] 21 mg TD QDAY 30 Days patch clonazePAM [KlonoPIN] 1 mg PO TID 14 Days tablet Gabapentin [Neurontin] 600 mg PO QID 30 Days capsule QUEtiapine [SEROquel] 300 mg PO BID 30 Days tablet
[2019-01-16] MEDS: HABITROL TD SCH (10:27)
[2019-01-16] MEDS: NEURONTIN PO SCH (10:29)
== END 2019-01-16 11:30 | disposition home or self-care (01) | DRG 885 ==
LOC: UNDOADMIN 08:17 → 3A 08:17 → 5A 09:06
PROVIDERS: ADMIT Psychiatry & Neurology Psychiatry; ATTEND Psychiatry & Neurology Psychiatry
DX: F25.0 Schizoaffective disorder, bipolar type (principal); G93.41 Metabolic encephalopathy; N39.0 Urinary tract infection, site not specified; Z68.41 Body mass index [BMI] 40.0-44.9, adult; J44.9 Chronic obstructive pulmonary disease, unspecified; F17.200 Nicotine dependence, unspecified, uncomplicated; E66.01 Morbid (severe) obesity due to excess calories; Z90.710 Acquired absence of both cervix and uterus; Z88.8 Allergy status to other drugs, medicaments and biological substances; Z88.2 Allergy status to sulfonamides; Z88.6 Allergy status to analgesic agent; Z79.82 Long term (current) use of aspirin; Z79.899 Other long term (current) drug therapy; Z79.51 Long term (current) use of inhaled steroids; Z71.6 Tobacco abuse counseling
CPT/HCPCS: 36415; 80048; 80053; 80061; 80164; 80307; 80320; 81001; 82962; 83036; 85025; 87086; 94640; 99284; G0378; G0480

== ENCOUNTER 2019-07-10 05:19 | Observation (INO) | payer MEDICARE ==
[2019-07-10 06:11] LABS: Basophils # (Auto) 0.1 K/mm3 (0.0-0.1); Basophils % (Auto) 0.6 % (0.0-1.8); Eosinophils # (Auto) 0.2 K/mm3 (0.0-0.4); Eosinophils % (Auto) 1.8 % (0.0-4.3); Hematocrit 39.7 % (30.3-42.9); Hemoglobin 13.2 gm/dl (10.1-14.3); Lymphocytes % (Auto) 19.6 % (13.4-35.0); Mean Corpuscular HGB Conc 33 % (30-34); Mean Corpuscular Volume 97 fl (79-97); Monocytes # (Auto) 0.5 K/mm3 (0.0-0.8); Monocytes % (Auto) 5.5 % (0.0-7.3); Platelet Count 228 K/mm3 (140-440); Red Blood Count 4.08 M/mm3 (3.65-5.03); Red Cell Distribution Width 14.1 % (13.2-15.2)
[2019-07-10] MEDS ORDERED: SODIUM CHLORIDE 0.9% 1000 ML 1,000 ML IV ONE ×4 (06:11→09:55)
[2019-07-10] MEDS ORDERED: HYDROmorphone 1 MG/1 ML INJ IM ONE (06:56)
[2019-07-10] MEDS ORDERED: NAPROXEN 500 MG TAB PO ONE (06:56)
[2019-07-10] MEDS ORDERED: KETOROLAC 60 MG/2 ML INJ IM ONE (06:59)
--- NOTE | 2019-07-10 07:04 | Emergency Department Report ---
ED Female HPI - General Chief complaint: Vaginal Bleeding Stated complaint: ANAL BLEEDING Time Seen by Provider: 07/10/19 06:30 Source: patient Mode of arrival: Ambulatory Limitations: No Limitations - History of Present Illness Initial comments: 58-year-old female the past medical history of multiple chronic medical conditions, bipolar disorder, chronic pain currently in pain management and C- section 2 presents to the hospital complains of vaginal bleeding and suprapubic abdominal pain rated into the back that started 3 hours prior to arrival. Patient complains of 10/10 cramping pain to the suprapubic area and lower back. Pain is intermittent. No aggravating or alleviating factors. Patient having heavy vaginal bleeding with clots. Patient has not had a menstral cycle or vaginal bleeding in 10 years. Patient denies any antiplatelet or anticoagulant use. She is chronically on oxycodone 20 mg 4 times a day and Naprosyn for chronic pain. Last dose of meds was yesterday. Does not currently have a [employer] doctor. Denies history of fibroids or uterine pathology. - Related Data Home Medications Medication Instructions Recorded Confirmed Last Taken Albuterol Sulfate [Ventolin HFA] 2 in2 IH Q4H 11/01/15 01/07/19 02/23/16 2 Aspirin EC [Halfprin EC] 81 mg PO DAILY 11/01/15 01/07/19 02/23/16 81 mg Budesoni/Formotero 160-4.5(Nf) 2 inhalation IH BID 11/01/15 01/07/19 02/23/16 [Symbicort 160-4.5 (Nf)] 2 Previous Rx's Medication Instructions Recorded Last Taken Type ALBUTEROL Inhaler (OR & NICU) 2 puff IH QID PRN #1 inhalation 02/18/16 02/23/16 Rx [ProAir HFA Inhaler] 2 Albuterol Sulfate [Ventolin Hfa] 1 puff IH Q4H PRN #1 hfa.aer.ad 01/21/18 Unknown Rx ALBUTEROL NEB's [Proventil 0.083% 2.5 mg IH Q4H PRN nebu 01/16/19 Unknown Rx NEBS] Divalproex ER [Depakote ER] 250 mg PO BID 30 Days tablet 01/16/19 Unknown Rx Divalproex ER [Depakote ER] 500 mg PO BID 30 Days tablet 01/16/19 Unknown Rx Gabapentin 600 mg PO QID 30 Days capsule 01/16/19 Unknown Rx Nicotine [Habitrol] 21 mg TD QDAY 30 Days patch 01/16/19 Unknown Rx QUEtiapine [SEROquel] 300 mg PO BID 30 Days tablet 01/16/19 Unknown Rx clonazePAM [KlonoPIN] 1 mg PO TID 14 Days tablet 01/16/19 Unknown Rx Allergies Allergy/AdvReac Type Severity Reaction Status Date / Time haloperidol [From Haldol] Allergy Swelling Verified 02/17/16 23:27 haloperidol lactate Allergy Swelling Verified 06/13/13 23:08 [From Haldol] ibuprofen [From Motrin] Allergy Swelling Verified 02/17/16 23:27 Sulfa (Sulfonamide Allergy Unknown Verified 02/17/16 23:27 Antibiotics) ziprasidone HCl [From Geodon] Allergy Unknown Verified 02/17/16 23:27 ziprasidone mesylate Allergy Unknown Verified 02/17/16 23:26 [From Geodon] ED Review of Systems ROS: Stated complaint: ANAL BLEEDING Other details as noted in HPI Comment: All other systems reviewed and negative ED Past Medical Hx - Past Medical History Previous Medical History?: Yes Hx Congestive Heart Failure: Yes Hx Diabetes: No Hx Arthritis: Yes Hx Seizures: Yes Hx Kidney Stones: Yes Hx Psychiatric Treatment: Yes (Bipolar, Manic) Hx Asthma: Yes Hx COPD: Yes Additional medical history: Chronic knee pain - sees pain specialist,TIA x 2 - Surgical History Past Surgical History?: Yes Additional Surgical History: C-sections x 2 - Social History Smoking Status: Current Every Day Smoker Substance Use Type: None - Medications Home Medications: Home Medications Medication Instructions Recorded Confirmed Last Taken Type Albuterol Sulfate [Ventolin HFA] 2 in2 IH Q4H 11/01/15 01/07/19 02/23/16 History 2 Aspirin EC [Halfprin EC] 81 mg PO DAILY 11/01/15 01/07/19 02/23/16 History 81 mg Budesoni/Formotero 160-4.5(Nf) 2 inhalation IH BID 11/01/15 01/07/19 02/23/16 History [Symbicort 160-4.5 (Nf)] 2 ALBUTEROL Inhaler (OR & NICU) 2 puff IH QID PRN #1 inhalation 0701/07/19 02/23/16 Rx [ProAir HFA Inhaler] 2 Albuterol Sulfate [Ventolin Hfa] 1 puff IH Q4H PRN #1 hfa.aer.ad 01/21/18 06/03/20 Unknown Rx ALBUTEROL NEB's [Proventil 0.083% 2.5 mg IH Q4H PRN nebu 01/16/19 Unknown Rx NEBS] Divalproex ER [Depakote ER] 250 mg PO BID 30 Days tablet 01/16/19 Unknown Rx Divalproex ER [Depakote ER] 500 mg PO BID 30 Days tablet 01/16/19 Unknown Rx Gabapentin 600 mg PO QID 30 Days capsule 01/16/19 Unknown Rx Nicotine [Habitrol] 21 mg TD QDAY 30 Days patch 01/16/19 Unknown Rx QUEtiapine [SEROquel] 300 mg PO BID 30 Days tablet 01/16/19 Unknown Rx clonazePAM [KlonoPIN] 1 mg PO TID 14 Days tablet 01/16/19 Unknown Rx ED Physical Exam - General Limitations: No Limitations - Other Other exam information: General: No acute distress Head: Atraumatic Eyes: normal appearance ENT: Moist mucous membranes Neck: Normal appearance, no midline tenderness Chest: Clear to auscultation bilaterally CV: Regular rate and rhythm Abdomen: Soft, normal bowel sounds, mild suprapubic tenderness, nondistended, no rebound or guarding : Heavy vaginal bleeding with passage of clots, vaginal vault full of clots, removed with forceps and gauze, friable apearing cervix with clot vs mass at os Back: Normal inspection Extremity: Normal inspection infection, full range of motion Neuro: Alert O x 3, no facial asymmetry, speech clear, no gross motor sensory d eficit Psych: Appropriate behavior Skin: No rash ED Course Vital Signs 07/10/19 07/10/19 07/10/19 05:24 07:00 07:28 Temperature 98.7 F Pulse Rate 111 H 80 86 Respiratory 18 20 18 Rate Blood Pressure 123/89 Blood Pressure 105/68 86/51 [Right] O2 Sat by Pulse 95 98 96 Oximetry 07/10/19 07/10/19 07/10/19 08:01 08:15 08:38 Temperature 97.5 F L Pulse Rate 65 72 75 Respiratory 17 15 15 Rate Blood Pressure 96/63 Blood Pressure 90/47 102/54 [Right] O2 Sat by Pulse 93 91 100 Oximetry 07/10/19 07/10/19 07/10/19 08:40 09:00 09:20 Temperature Pulse Rate 76 74 78 Respiratory 15 15 15 Rate Blood Pressure 102/54 107/56 110/66 Blood Pressure [Right] O2 Sat by Pulse 100 100 100 Oximetry - Reevaluation(s) Reevaluation #1: 07/10/19 07:39 bp dropped to sbp in the 80's after my evaluation and prior to receiving pain meds. pt moved to the acute side, stat iv acess requested, NS bolus, toradol IV, hold dilaudid until bp improved 07/10/19 09:47 bp improved after 2 L NS sbp greater than 100 - Consultations Consultation #1: 07/10/19 08:29 consult requested for ob, spoke to shanthi coin machine supervisor, awaiting attending call back 07/10/19 08:40 case d/w Dr Hale with textile chemist, will come to access pt. 07/10/19 09:47 Dr hale came to ED to see pt, will admit to his service, repeat labs pending - EJ/Peripheral Line Neck L Time Out Performed: Yes Indications: nurses unable to establis Skin Cleansed in Sterile Fashion: Yes Size: 20 Dressing Placed: Tegaderm, tape Patient Tolerated Procedure: well, no complications ED Medical Decision Making - Lab Data Result diagrams: 07/10/19 05:53 Lab Results 07/10/19 07/10/19 Range/Units 05:53 05:53 WBC 10.0 (4.5-11.0) K/mm3 RBC 4.08 (3.65-5.03) M/mm3 Hgb 13.2 (10.1-14.3) gm/dl Hct 39.7 (30.3-42.9) % MCV 97 (79-97) fl MCH 32 (28-32) pg MCHC 33 (30-34) % RDW 14.1 (13.2-15.2) % Plt Count 228 (140-440) K/mm3 Lymph % (Auto) 19.6 (13.4-35.0) % [place] % (Auto) 5.5 (0.0-7.3) % Eos % (Auto) 1.8 (0.0-4.3) % Baso % (Auto) 0.6 (0.0-1.8) % Lymph # 2.0 (1.2-5.4) K/mm3 [place] # 0.5 (0.0-0.8) K/mm3 Eos # 0.2 (0.0-0.4) K/mm3 Baso # 0.1 (0.0-0.1) K/mm3 Seg Neutrophils % 72.5 H (40.0-70.0) % Seg Neutrophils # 7.3 (1.8-7.7) K/mm3 Blood Type A POSITIVE - Radiology Data Radiology results: report reviewed ULTRASOUND PELVIS INDICATION: postmenopausal bleeding. TECHNIQUE: Transabdominal and Transvaginal. Duplex Color Doppler used: Yes. COMPARISON: None available FINDINGS: Uterus: Present. Size: 5.2 x 2.4 x 3.5 cm. Endometrial complex: Normal measuring 0.4 cm. Mass lesions: None. Additional findings: The vaginal canal is expanded by heterogeneous material. Right Ovary: Size: 1.3 x 0.9 x 1.1 cm Blood flow: Normal. Cyst or mass: None. Left Ovary: Not visualized. Urinary Bladder: Not well visualized. Free Fluid: None seen. Additional Findings: None. IMPRESSION: 1. Probable blood products along the vaginal canal. A mass cannot be entirely excluded. Please correlate with the clinical findings. 2. Nonvisualization of the left ovary. - Medical Decision Making ? cervical mass + vag bleeding and hypotension requiring multiple fluid boluses Patient's repeat blood pending collection at disposition ordered at 8:26 DR Hale to admit - Differential Diagnosis anemia, cancer, fiborids Critical Care Time: Yes Critical care time in (mins) excluding proc time.: 35 Critical care attestation.: If time is entered above; I have spent that time in minutes in the direct care of this critically ill patient, excluding procedure time. ED Disposition Clinical Impression: Post-menopausal bleeding, Hypotension, Chronic narcotic use Disposition: OP ADMIT IP TO THIS HOSP Is pt being admited?: Yes Condition: Stable Time of Disposition: 10:04 (Dr Hale)
--- NOTE | 2019-07-10 07:16 | Ultrasound Report ---
ULTRASOUND PELVIS INDICATION: postmenopausal bleeding. TECHNIQUE: Transabdominal and Transvaginal. Duplex Color Doppler used: Yes. COMPARISON: None available FINDINGS: Uterus: Present. Size: 5.2 x 2.4 x 3.5 cm. Endometrial complex: Normal measuring 0.4 cm. Mass lesions: None. Additional findings: The vaginal canal is expanded by heterogeneous material. Right Ovary: Size: 1.3 x 0.9 x 1.1 cm Blood flow: Normal. Cyst or mass: None. Left Ovary: Not visualized. Urinary Bladder: Not well visualized. Free Fluid: None seen. Additional Findings: None. IMPRESSION: 1. Probable blood products along the vaginal canal. A mass cannot be entirely excluded. Please correl ate with the clinical findings. 2. Nonvisualization of the left ovary. Signer Name: Rakan Barone MD Signed: 07/10/2019 7:12 AM Workstation Name: [id number]
[2019-07-10] MEDS ORDERED: KETOROLAC 30 MG/1 ML INJ IV ONE (07:33)
[2019-07-10 10:39] LABS: Basophils % (Auto) 0.1 % (0.0-1.8); Eosinophils % (Auto) 0.4 % (0.0-4.3); Hematocrit 34.9 % (30.3-42.9); Hemoglobin 11.6 gm/dl (10.1-14.3); Lymphocytes # (Auto) 1.3 K/mm3 (1.2-5.4); Lymphocytes % (Auto) 11.7 % (13.4-35.0); Mean Corpuscular HGB Conc 33 % (30-34); Mean Corpuscular Volume 97 fl (79-97); Monocytes # (Auto) 0.5 K/mm3 (0.0-0.8); Monocytes % (Auto) 4.6 % (0.0-7.3); Platelet Count 193 K/mm3 (140-440); Red Blood Count 3.62 M/mm3 (3.65-5.03)
[2019-07-10 10:46] LABS: INR 1.19 (0.87-1.13)
[2019-07-10 10:47] LABS: Partial Thromboplastin Time 24.3 Sec. (24.2-36.6)
[2019-07-10 10:56] LABS: BUN/Creatinine Ratio 25; Blood Urea Nitrogen 20 mg/dL (7-17); Calcium 8.4 mg/dL (8.4-10.2); Hemolysis Index 4
[2019-07-10] MEDS ORDERED: ALBUTEROL 8.5 GM INHALATION IH PRN (11:04)
[2019-07-10] MEDS ORDERED: ALBUTEROL 2.5 MG/3 ML NEBU IH PRN (11:04)
[2019-07-10] MEDS ORDERED: ACETAMINOPHEN 325 MG TAB PO PRN (11:09)
[2019-07-10] MEDS ORDERED: ONDANSETRON 4 MG/2 ML INJ IV PRN (11:09)
[2019-07-10] MEDS ORDERED: MAGNESIUM HYDROXIDE (MOM) ORAL LIQD UDC PO PRN (11:09)
[2019-07-10] MEDS ORDERED: NICOTINE 21 MG/24 HR PATCH TD SCH (12:00)
--- NOTE | 2019-07-10 13:04 | History and Physical Report ---
History of Present Illness Date of examination: 07/10/19 Date of admission: 07/10/19 10:04 History of present illness: This 58-year-old white female in emergency room stretcher in no acute distress at this moment. She is a para 2102 station last menstrual period approximately 10 years ago. Presents to the emergency room complaints of heavy vaginal bleeding as noted in Dr. White's note. At present the patient without any heavy bleeding. The clots patient has is noted as per Dr. White's note. Patient is complaining of some abdominal pain and lower back pain. revious Medical History?: Yes Hx Congestive Heart Failure: Yes Hx Diabetes: No Hx Arthritis: Yes Hx Seizures: Yes Hx Kidney Stones: Yes Hx Psychiatric Treatment: Yes (Bipolar, Manic) Hx Asthma: Yes Hx COPD: Yes Additional medical history: Chronic knee pain - sees pain specialist,TIA x 2 - Surgical History Past Surgical History?: Yes Additional Surgical History: C-sections x 2 - Social History Smoking Status: Current Every Day Smoker Substance Use Type: None Past History Past Medical History: heart failure, seizures, other (Bipolar dz, Asthma, Chronic pain, Arthritis) Past Surgical History: Social history: smoking Medications and Allergies Allergies Allergy/AdvReac Type Severity Reaction Status Date / Time haloperidol [From Haldol] Allergy Swelling Verified 02/17/16 23:27 haloperidol lactate Allergy Swelling Verified 06/13/13 23:08 [From Haldol] ibuprofen [From Motrin] Allergy Swelling Verified 02/17/16 23:27 Sulfa (Sulfonamide Allergy Unknown Verified 02/17/16 23:27 Antibiotics) ziprasidone HCl [From Geodon] Allergy Unknown Verified 02/17/16 23:27 ziprasidone mesylate Allergy Unknown Verified 02/17/16 23:26 [From Geodon] Home Medications Medication Instructions Recorded Confirmed Last Taken Type Albuterol Sulfate [Ventolin HFA] 2 in2 IH Q4H 11/01/15 01/07/19 02/23/16 History 2 Aspirin EC [Halfprin EC] 81 mg PO DAILY 11/01/15 01/07/19 02/23/16 History 81 mg Budesoni/Formotero 160-4.5(Nf) 2 inhalation IH BID 11/01/15 01/07/19 02/23/16 History [Symbicort 160-4.5 (Nf)] 2 ALBUTEROL Inhaler (OR & NICU) 2 puff IH QID PRN #1 inhalation 02/18/16 01/07/19 02/23/16 Rx [ProAir HFA Inhaler] 2 Albuterol Sulfate [Ventolin Hfa] 1 puff IH Q4H PRN #1 hfa.aer.ad 01/21/18 01/07/19 Unknown Rx ALBUTEROL NEB's [Proventil 0.083% 2.5 mg IH Q4H PRN nebu 01/16/19 Unknown Rx NEBS] Divalproex ER [Depakote ER] 250 mg PO BID 30 Days tablet 01/16/19 Unknown Rx Divalproex ER [Depakote ER] 500 mg PO BID 30 Days tablet 01/16/19 Unknown Rx Gabapentin 600 mg PO QID 30 Days capsule 01/16/19 Unknown Rx Nicotine [Habitrol] 21 mg TD QDAY 30 Days patch 01/16/19 Unknown Rx QUEtiapine [SEROquel] 300 mg PO BID 30 Days tablet 01/16/19 Unknown Rx clonazePAM [KlonoPIN] 1 mg PO TID 14 Days tablet 01/16/19 Unknown Rx Active Meds: Active Medications Acetaminophen (Tylenol) 650 mg PO Q4H PRN PRN Reason: Pain MILD(1-3)/Fever >100.5/VASQUEZ Albuterol (Proventil) 2.5 mg IH Q4H PRN PRN Reason: Shortness Of Breath Aspirin (Halfprin Ec) 81 mg PO DAILY RYAN Clonazepam (Klonopin) 1 mg PO TID RYAN Divalproex Sodium (Depakote Er) 250 mg PO BID RYAN Docusate Sodium (Colace) 100 mg PO BID RYAN Gabapentin (Gabapentin) 600 mg PO QID [facility] Sodium Chloride (Nacl 0.45% 1000 Ml) 1,000 mls @ 125 mls/hr IV DIRECT RYAN Magnesium Hydroxide (Milk Of Magnesia) 30 ml PO Q4H PRN PRN Reason: Constipation Nicotine (Habitrol) 21 mg TD QDAY RYAN Ondansetron HCl (Zofran) 4 mg IV Q8H PRN PRN Reason: Nausea And Vomiting Sodium Chloride (Sodium Chloride Flush Syringe 10 Ml) 10 ml IV BID RYAN Sodium Chloride (Sodium Chloride Flush Syringe 10 Ml) 10 ml IV PRN PRN PRN Reason: LINE FLUSH Review of Systems Genitourinary Female: abnormal vaginal bleeding Exam - Constitutional Vitals: Temp Pulse Resp BP Pulse Ox 96.8 F L 91 H 16 93/57 100 07/10/19 12:25 07/10/19 12:25 07/10/19 12:25 07/10/19 12:25 07/10/19 12:25 General appearance: Present: no acute distress - Cardiovascular Rhythm: regular - Abdominal General gastrointestinal: Present: soft Female genitourinary: Present: normal, other (small amount of blood in the vaginal vault has a friable-appearing cervix fleshy appearing without distinct mass) - Rectal Rectal Exam: deferred - Integumentary Integumentary: Present: clear, warm, dry - Psychiatric Psychiatric: appropriate mood/affect, intact judgment & insight Results - Labs CBC & Chem 7: 07/10/19 10:23 07/10/19 10:23 Labs: Abnormal lab results 07/10/19 07/10/19 07/10/19 Range/Units 05:53 10:23 10:23 WBC 11.3 H (4.5-11.0) K/mm3 RBC 3.62 L (3.65-5.03) M/mm3 Lymph % (Auto) 11.7 L (13.4-35.0) % Seg Neutrophils % 72.5 H 83.2 H (40.0-70.0) % Seg Neutrophils # 9.4 H (1.8-7.7) K/mm3 PT 15.0 H (12.2-14.9) Sec. INR 1.19 H (0.87-1.13) BUN (7-17) mg/dL 07/10/19 Range/Units 10:23 WBC (4.5-11.0) K/mm3 RBC (3.65-5.03) M/mm3 Lymph % (Auto) (13.4-35.0) % Seg Neutrophils % (40.0-70.0) % Seg Neutrophils # (1.8-7.7) K/mm3 PT (12.2-14.9) Sec. INR (0.87-1.13) BUN 20 H (7-17) mg/dL Assessment and Plan - Patient Problems (1) Asthma Current Visit: Yes Status: Chronic Qualifiers: Asthma complication type: unspecified Plan to address problem: We'll continue patient's present medications (2) Kidney stones Current Visit: Yes Status: Chronic (3) Chronic pain Current Visit: Yes Status: Acute Qualifiers: Chronic pain type: chronic pain syndrome Qualified Code(s): G89.4 - Chronic pain syndrome (4) Post-menopausal bleeding Current Visit: Yes Status: Acute Plan to address problem: Patient normal pelvic ultrasound no evidence of masses of uterus or ovaries. Patient was a friable cervix with a history of the last 10 years possibly the cause of her abnormal bleeding. Patient without inactive bleeding. Also with pending labs, evaluation will do serial H&H is sure that her blood count is stable. Patient has no active bleeding and stable will require outpatient evaluation. (5) Schizoaffective disorder, bipolar type Current Visit: No Status: Chronic
[2019-07-10] MEDS ORDERED: FERRIC SUBSULFATE TOPICAL SOLN 8 ML TP ONE (14:31)
[2019-07-10] MEDS: clonazePAM 0.5 MG TAB PO SCH ×2 (14:33→20:06)
[2019-07-10] MEDS: DIVALPROEX ER 250 MG TAB PO SCH ×2 (14:35→22:42)
[2019-07-10] MEDS: GABAPENTIN 300 MG CAP PO SCH ×2 (14:35→17:47)
[2019-07-10 16:05] LABS: Basophils % (Auto) 0.3 % (0.0-1.8); Eosinophils # (Auto) 0.1 K/mm3 (0.0-0.4); Eosinophils % (Auto) 1.3 % (0.0-4.3); Hematocrit 31.3 % (30.3-42.9); Hemoglobin 10.4 gm/dl (10.1-14.3); Lymphocytes # (Auto) 1.6 K/mm3 (1.2-5.4); Lymphocytes % (Auto) 19.5 % (13.4-35.0); Mean Corpuscular HGB Conc 33 % (30-34); Mean Corpuscular Volume 100 fl (79-97); Monocytes # (Auto) 0.6 K/mm3 (0.0-0.8); Monocytes % (Auto) 6.9 % (0.0-7.3); Platelet Count 160 K/mm3 (140-440); Red Blood Count 3.14 M/mm3 (3.65-5.03); Red Cell Distribution Width 14.4 % (13.2-15.2)
[2019-07-10] MEDS: SODIUM CHLORIDE 0.45% 1000 ML 1,000 ML IV SCH (17:47)
[2019-07-10] MEDS ORDERED: oxyCODONE /ACETAMINOPHEN 5-325MG TAB PO PRN (21:48)
--- NOTE | 2019-07-10 21:49 | Event Note ---
Date: 07/10/19 Patient c/o lower abdominal and back pain/minimal vaginal bleeding now B/P 80-120/44-81 A/ Vaginal bleeding minimal Chronic pain p/ Will need outpatient w/o for abnormal bleeding/ will watch overnight/ Percocet order with hold if hypotensive Patient states has appt tomorrow with pain management physician
[2019-07-10] MEDS ORDERED: DOCUSATE SODIUM 100 MG CAP PO SCH (22:00)
[2019-07-10] MEDS: oxyCODONE /ACETAMINOPHEN 5-325MG TAB PO PRN (22:41)
[2019-07-11] MEDS: GABAPENTIN 300 MG CAP PO SCH (00:31)
[2019-07-11] MEDS: oxyCODONE /ACETAMINOPHEN 5-325MG TAB PO PRN (04:30)
[2019-07-11] MEDS: SODIUM CHLORIDE 0.45% 1000 ML 1,000 ML IV SCH (05:55)
--- NOTE | 2019-07-11 07:28 | Discharge Summary ---
Providers - Providers Date of Admission: 07/10/19 10:04 Date of discharge: 07/11/19 Attending physician: JEANNE HERRING 07/10/19 08:27 Consult to Physician [CONS] Stat Comment: Consulting Provider: JEANNE HERRING Physician Instructions: Reason For Exam: vaginal bleeding, hypotension Primary care physician: GIUSEPPE BRIDGES Hospitalization Reason for admission: other (post menopausal bleeding) Hospital course: Pt admitted for post menopausal bleeding. Currently just having spotting and states she feels well and ready to go home. I d/w f/u in the office with Dr. Herring and pt has office information to make appointment. She will f/u with pain management provider this pm. Condition at discharge: Good Disposition: DC-01 TO HOME OR SELFCARE Plan - Provider Discharge Summary Additional instructions: [] Smoking cessation referral if applicable(refer to patient education folder for contact #) [] Refer to [facility]'s [facility] Booklet Call your doctor immediately for: * Fever > 100.5 * Heavy vaginal bleeding ( >1 pad per hour) * Severe persistent headache * Shortness of breath * Reddened, hot, painful area to leg or breast * Drainage or odor from incision. * Keep incision clean and dry at all times and follow doctor's instructions regarding bathing/showering - Follow up plan Follow up: COLLIN WRIGHT MD [Referring] - 3-5 Days JEANNE HERRING MD [Staff Physician] - 7 Days
[2019-07-11] MEDS: clonazePAM 0.5 MG TAB PO SCH (07:43)
[2019-07-11 09:31] VITALS: BP 112/58
[2019-07-11] MEDS ORDERED: ASPIRIN EC 81 MG TAB PO SCH (10:00)
== END 2019-07-11 09:20 | disposition home or self-care (01) ==
LOC: ED 05:19 → OB 10:04 → INTOOBSV 10:04 → OB 11:15
PROVIDERS: ADMIT Obstetrics & Gynecology; ATTEND Obstetrics & Gynecology
DX: N95.0 Postmenopausal bleeding (principal); I95.9 Hypotension, unspecified; F11.90 Opioid use, unspecified, uncomplicated; J45.909 Unspecified asthma, uncomplicated; N20.0 Calculus of kidney; F25.0 Schizoaffective disorder, bipolar type; G89.29 Other chronic pain; F17.200 Nicotine dependence, unspecified, uncomplicated; Z79.82 Long term (current) use of aspirin; Z98.891 History of uterine scar from previous surgery
CPT/HCPCS: 36415; 76830; 76856; 80048; 85025; 85610; 85730; 86900; 86901; 96361; 96374; 99291; G0378; J1885; J7030; J1170

== ENCOUNTER 2019-09-04 21:14 | Emergency (ER) | payer MEDICARE ==
--- NOTE | 2019-09-04 21:36 | Event Note ---
ED Screening Note ED Screening Note: jaw pain all over for two days states she has dental implants states she thinks she is having a heart attack no CP +nausea +sob right sided knee pain no fall or injury no vomiting no diarrhea no HI/SI PMHx bipolar manic, seizure, TIA, CHF allergy: motrin, sulfa, geodon This initial assessment/diagnostic orders/clinical plan/treatment(s) is/are subject to change based on patients health status, clinical progression and re- assessment by fellow clinical providers in the ED. Further treatment and workup at subsequent clinical providers discretion. Patient/guardian urged not to elope from the ED as their condition may be serious if not clinically assessed and managed. Initial orders include: chest pain protocol
[2019-09-04 22:03] LABS: Basophils # (Auto) 0.1 K/mm3 (0.0-0.1); Basophils % (Auto) 0.8 % (0.0-1.8); Eosinophils # (Auto) 0.2 K/mm3 (0.0-0.4); Eosinophils % (Auto) 1.7 % (0.0-4.3); Hematocrit 36.5 % (30.3-42.9); Hemoglobin 12.2 gm/dl (10.1-14.3); Mean Corpuscular HGB Conc 34 % (30-34); Mean Corpuscular Volume 88 fl (79-97); Monocytes # (Auto) 0.8 K/mm3 (0.0-0.8); Monocytes % (Auto) 7.4 % (0.0-7.3); Platelet Count 348 K/mm3 (140-440); Red Blood Count 4.14 M/mm3 (3.65-5.03); Red Cell Distribution Width 15.4 % (13.2-15.2)
[2019-09-04 22:13] LABS: INR 1.1 (0.87-1.13)
[2019-09-04 22:14] LABS: Partial Thromboplastin Time 26.6 Sec. (24.2-36.6)
[2019-09-04 22:27] LABS: Alanine Aminotransferase 20 units/L (7-56); Albumin 4.1 g/dL (3.9-5); BUN/Creatinine Ratio 11; Blood Urea Nitrogen 9 mg/dL (7-17); Calcium 10.1 mg/dL (8.4-10.2); Hemolysis Index 6
--- NOTE | 2019-09-04 22:31 | XRay Report ---
CHEST 2 VIEWS INDICATION: MAIN: SOB; Pt. c/o right flank pain. Pt. denies injury. No N/V/D. COMPARISON: 02/17/2016 FINDINGS: Support devices: None. Heart: Within normal limits. Lungs/pleura: No acute air space or interstitial disease. No pneumothorax. Additional findings: None. IMPRESSION: 1. No acute findings. Signer Name: Lon Coker MD Signed: 09/04/2019 10:26 PM Workstation Name: [id number]
[2019-09-05 02:06] VITALS: BP 125/73
[2019-09-05] MEDS ORDERED: oxyCODONE /ACETAMINOPHEN 5-325MG TAB PO ONE (04:06)
[2019-09-05] MEDS ORDERED: ONDANSETRON 4 MG ODT TAB PO ONE (04:06)
--- NOTE | 2019-09-05 04:59 | Emergency Department Report ---
ED Extremity Problem HPI - General Chief complaint: Chest Pain Stated complaint: JAW PAIN/CP Time Seen by Provider: 09/04/19 21:33 Source: patient Mode of arrival: Ambulatory Limitations: No Limitations - History of Present Illness Initial comments: 58-year-old female with a past medical history chronic pain currently in pain management, seizures, and bipolar disorder presents to the hospital complaining of pain and being out of her oxycodone for about 2 days. Patient complains of pain to her teeth due to her implants and ongoing right knee pain without new injury. Patient described oxycodone 20 mg once a month and is scheduled to see her pain medicine specialist on September 06 but is out of medication. [place] prescription monitoring site reviewed and patient filled 120 tablets of oxycodone 20 mg on August 11 which should last her 30 days. Patient has run out prior to her 30 day time which suggests she is taking additional doses of her medication. Patient complains of nausea without vomiting. She does not complain of chest pain or sob. Severity scale (0 -10): 10 - Related Data Home Medications Medication Instructions Recorded Confirmed Last Taken Albuterol Sulfate [Ventolin HFA] 2 in2 IH Q4H 11/01/15 01/07/19 02/23/16 2 Aspirin EC [Halfprin EC] 81 mg PO DAILY 11/01/15 01/07/19 02/23/16 81 mg Budesoni/Formotero 160-4.5(Nf) 2 inhalation IH BID 11/01/15 01/07/19 02/23/16 [Symbicort 160-4.5 (Nf)] 2 Previous Rx's Medication Instructions Recorded Last Taken Type Albuterol INH(or & Nicu Only) 2 puff IH QID PRN #1 inhalation 02/18/16 02/23/16 Rx [ProAir HFA Inhaler] 2 Albuterol Sulfate [Ventolin Hfa] 1 puff IH Q4H PRN #1 hfa.aer.ad 01/21/18 Unknown Rx ALBUTEROL NEB's [Proventil 0.083% 2.5 mg IH Q4H PRN nebu 01/16/19 Unknown Rx NEBS] Divalproex ER [Depakote ER] 250 mg PO BID 30 Days tablet 01/16/19 Unknown Rx Divalproex ER [Depakote ER] 500 mg PO BID 30 Days tablet 01/16/19 Unknown Rx Gabapentin 600 mg PO QID 30 Days capsule 01/16/19 Unknown Rx Nicotine [Habitrol] 21 mg TD QDAY 30 Days patch 01/16/19 Unknown Rx QUEtiapine [SEROquel] 300 mg PO BID 30 Days tablet 01/16/19 Unknown Rx clonazePAM [KlonoPIN] 1 mg PO TID 14 Days tablet 01/16/19 Unknown Rx Ondansetron [Zofran Odt] 4 mg PO Q8HR PRN #20 tab.rapdis 09/05/19 Unknown Rx Allergies Allergy/AdvReac Type Severity Reaction Status Date / Time haloperidol [From Haldol] Allergy Swelling Verified 02/17/16 23:27 haloperidol lactate Allergy Swelling Verified 06/13/13 23:08 [From Haldol] ibuprofen [From Motrin] Allergy Swelling Verified 02/17/16 23:27 Sulfa (Sulfonamide Allergy Unknown Verified 02/17/16 23:27 Antibiotics) ziprasidone HCl [From Geodon] Allergy Unknown Verified 02/17/16 23:27 ziprasidone mesylate Allergy Unknown Verified 02/17/16 23:26 [From Geodon] ED Review of Systems ROS: Stated complaint: JAW PAIN/CP Other details as noted in HPI Comment: All other systems reviewed and negative ED Past Medical Hx - Past Medical History Previous Medical History?: Yes Hx Congestive Heart Failure: Yes Hx Diabetes: No Hx Pulmonary Embolism: No Hx Renal Disease: No Hx Arthritis: Yes Hx Seizures: Yes Hx Kidney Stones: No Hx Psychiatric Treatment: Yes (Bipolar, Manic) Hx Asthma: Yes Hx COPD: No Hx Tuberculosis: No Hx Dementia: No Hx HIV: No Additional medical history: Chronic knee pain - sees pain specialist,TIA x 2 - Surgical History Hx Open Heart Surgery: No Hx Cholecystectomy: No Hx Appendectomy: No Hx Breast Surgery: No Additional Surgical History: C-sections x 2 - Social History Smoking Status: Current Every Day Smoker Substance Use Type: Marijuana - Medications Home Medications: Home Medications Medication Instructions Recorded Confirmed Last Taken Type Albuterol Sulfate [Ventolin HFA] 2 in2 IH Q4H 11/01/15 01/07/19 02/23/16 History 2 Aspirin EC [Halfprin EC] 81 mg PO DAILY 11/01/15 01/07/19 02/23/16 History 81 mg Budesoni/Formotero 160-4.5(Nf) 2 inhalation IH BID 11/01/15 01/07/19 02/23/16 History [Symbicort 160-4.5 (Nf)] 2 Albuterol INH(or & Nicu Only) 2 puff IH QID PRN #1 inhalation 02/18/16 01/07/19 02/23/16 Rx [ProAir HFA Inhaler] 2 Albuterol Sulfate [Ventolin Hfa] 1 puff IH Q4H PRN #1 hfa.aer.ad 01/21/18 01/07/19 Unknown Rx ALBUTEROL NEB's [Proventil 0.083% 2.5 mg IH Q4H PRN nebu 01/16/19 Unknown Rx NEBS] Divalproex ER [Depakote ER] 250 mg PO BID 30 Days tablet 01/16/19 Unknown Rx Divalproex ER [Depakote ER] 500 mg PO BID 30 Days tablet 01/16/19 Unknown Rx Gabapentin 600 mg PO QID 30 Days capsule 01/16/19 Unknown Rx Nicotine [Habitrol] 21 mg TD QDAY 30 Days patch 01/16/19 Unknown Rx QUEtiapine [SEROquel] 300 mg PO BID 30 Days tablet 01/16/19 Unknown Rx clonazePAM [KlonoPIN] 1 mg PO TID 14 Days tablet 01/16/19 Unknown Rx Ondansetron [Zofran Odt] 4 mg PO Q8HR PRN #20 tab.rapdis 09/05/19 Unknown Rx ED Physical Exam - General Limitations: No Limitations - Other Other exam information: General: No limitations, patient is alert in no acute distress Head exam: Atraumatic, normocephalic Eyes exam: Normal appearance ENT: Moist mucous membrane,no gum swelling or dental abscess Neck exam: Normal inspection, full range of motion Respiratory exam: Clear to auscultation bilateral, no wheezes, rales, crackles Cardiovascular: Normal rate and rhythm Abdomen: Soft, nondistended, and nontender, with normal bowel sounds, no rebound, or guarding, Extremity: No deformity, mild right knee swelling with generalized pain. Full range of motion Back: Normal Inspection Neurologic: Alert, oriented x3, speech clear, no gross motor or sensory deficit Psychiatric: Normal mood, affect Skin: No rash ED Course Vital Signs 02/10/1909/04/19 09/05/19 21:21 21:35 02:04 Temperature 98.1 F 98.1 F 98.1 F Pulse Rate 96 H 95 H 85 Respiratory 18 18 18 Rate Blood Pressure 141/89 141/89 125/73 O2 Sat by Pulse 96 98 96 Oximetry ED Medical Decision Making - Lab Data Result diagrams: 09/04/19 21:46 09/04/19 21:46 Lab Results 09/04/19 09/04/19 09/04/19 Range/Units 21:46 21:46 21:46 WBC 10.5 (4.5-11.0) K/mm3 RBC 4.14 (3.65-5.03) M/mm3 Hgb 12.2 (10.1-14.3) gm/dl Hct 36.5 (30.3-42.9) % MCV 88 (79-97) fl MCH 30 (28-32) pg MCHC 34 (30-34) % RDW 15.4 H (13.2-15.2) % Plt Count 348 (140-440) K/mm3 Lymph % (Auto) 38.0 H (13.4-35.0) % [place] % (Auto) 7.4 H (0.0-7.3) % Eos % (Auto) 1.7 (0.0-4.3) % Baso % (Auto) 0.8 (0.0-1.8) % Lymph # 4.0 (1.2-5.4) K/mm3 [place] # 0.8 (0.0-0.8) K/mm3 Eos # 0.2 (0.0-0.4) K/mm3 Baso # 0.1 (0.0-0.1) K/mm3 Seg Neutrophils % 52.1 (40.0-70.0) % Seg Neutrophils # 5.5 (1.8-7.7) K/mm3 PT 14.3 (12.2-14.9) Sec. INR 1.10 (0.87-1.13) APTT 26.6 (24.2-36.6) Sec. Sodium 137 (137-145) mmol/L Potassium 4.1 (3.6-5.0) mmol/L Chloride 97.3 L (98-107) mmol/L Carbon Dioxide 23 (22-30) mmol/L Anion Gap 21 mmol/L BUN 9 (7-17) mg/dL Creatinine 0.8 (0.7-1.2) mg/dL Estimated GFR > 60 ml/min BUN/Creatinine Ratio 11 % Glucose 95 (65-100) mg/dL Calcium 10.1 (8.4-10.2) mg/dL Total Bilirubin 0.30 (0.1-1.2) mg/dL AST 38 (5-40) units/L ALT 20 (7-56) units/L Alkaline Phosphatase 78 (35-129) units/L Troponin T < 0.010 (0.00-0.029) ng/mL Total Protein 7.9 (6.3-8.2) g/dL Albumin 4.1 (3.9-5) g/dL Albumin/Globulin Ratio 1.1 % 09/05/19 Range/Units 00:57 WBC (4.5-11.0) K/mm3 RBC (3.65-5.03) M/mm3 Hgb (10.1-14.3) gm/dl Hct (30.3-42.9) % MCV (79-97) fl MCH (28-32) pg MCHC (30-34) % RDW (13.2-15.2) % Plt Count (140-440) K/mm3 Lymph % (Auto) (13.4-35.0) % [place] % (Auto) (0.0-7.3) % Eos % (Auto) (0.0-4.3) % Baso % (Auto) (0.0-1.8) % Lymph # (1.2-5.4) K/mm3 [place] # (0.0-0.8) K/mm3 Eos # (0.0-0.4) K/mm3 Baso # (0.0-0.1) K/mm3 Seg Neutrophils % (40.0-70.0) % Seg Neutrophils # (1.8-7.7) K/mm3 PT (12.2-14.9) Sec. INR (0.87-1.13) APTT (24.2-36.6) Sec. Sodium (137-145) mmol/L Potassium (3.6-5.0) mmol/L Chloride (98-107) mmol/L Carbon Dioxide (22-30) mmol/L Anion Gap mmol/L BUN (7-17) mg/dL Creatinine (0.7-1.2) mg/dL Estimated GFR ml/min BUN/Creatinine Ratio % Glucose (65-100) mg/dL Calcium (8.4-10.2) mg/dL Total Bilirubin (0.1-1.2) mg/dL AST (5-40) units/L ALT (7-56) units/L Alkaline Phosphatase (35-129) units/L Troponin T < 0.010 (0.00-0.029) ng/mL Total Protein (6.3-8.2) g/dL Albumin (3.9-5) g/dL Albumin/Globulin Ratio % - EKG Data -: EKG Interpreted by Me EKG shows normal: sinus rhythm, ST-T waves (no stemi) Rate: normal (84) - Radiology Data Radiology results: report reviewed CHEST 2 VIEWS (REPLACES THE PREVIOUS DICTATION) INDICATION: SOB. COMPARISON: 02/24/2016 FINDINGS: Support devices: None. Heart: Within normal limits. Lungs/pleura: No acute air space or interstitial disease. No pneumothorax. Additional findings: None. IMPRESSION: 1. No acute findings. Please note that the previous dictation was linked to a separate patient and this issue has been resolved and the PACS by the technologist. I was notified of this mismatch after the issue had been corrected. - Medical Decision Making Patient provided Percocet 5 mg tab x2 in the ED as well as Zofran will be discharged without a prescription given for her pain is chronic and ongoing and she is likely taking extra doses of her narcotic medication. Patient follow-up with her pain management doctor encouraged - Differential Diagnosis chronic pain, narcotic depence Critical Care Time: No Critical care attestation.: If time is entered above; I have spent that time in minutes in the direct care of this critically ill patient, excluding procedure time. ED Disposition Clinical Impression: Chronic pain, Chronic narcotic use, Chronic pain of right knee Disposition: DC-01 TO HOME OR SELFCARE Is pt being admited?: No Does the pt Need Aspirin: No Condition: Stable Instructions: Chronic Pain (ED), Knee Pain (ED) Additional Instructions: Follow-up with your pain management doctor for treatment of your ongoing chronic pain. Prescriptions: Ondansetron [Zofran Odt] 4 mg PO Q8HR PRN #20 tab.rapdis PRN Reason: Nausea And Vomiting Referrals: your, pain management doctor [Other] - [facility] Time of Disposition: 05:02
== END 2019-09-05 05:45 | disposition home or self-care (01) ==
LOC: ED 21:14
DX: M25.561 Pain in right knee (principal); G89.29 Other chronic pain; F11.10 Opioid abuse, uncomplicated; I50.9 Heart failure, unspecified; J45.909 Unspecified asthma, uncomplicated; F17.200 Nicotine dependence, unspecified, uncomplicated; F12.10 Cannabis abuse, uncomplicated; Z79.899 Other long term (current) drug therapy; Z88.8 Allergy status to other drugs, medicaments and biological substances
CPT/HCPCS: 36415; 71046; 80053; 84484; 85025; 85610; 85730; 93005; 93010; Q0162

== ENCOUNTER 2021-01-30 15:35 | Emergency (ER) | payer MEDICARE ==
--- NOTE | 2021-01-30 21:09 | Emergency Department Report ---
ED General Adult HPI - General Chief complaint: Anxiety Stated complaint: STRESS Time Seen by Provider: 01/30/21 20:59 Source: patient Mode of arrival: Ambulatory Limitations: No Limitations - History of Present Illness Initial comments: Patient 60-year-old female with history of depression who presents tonight for complaint of anxiety related to living quarters. States neighbors has dogs and cats and this is causing her a lot of stress today. Patient denies SI or HI. There is no chest pain, there is no dizziness, headache, lightheadedness, no [place] no vomiting, no abdominal pain. No shortness of breath. Patient is alert oriented x3, patient is tolerating p.o. intake. Patient drove self to ED tonight. Patient is currently followed by primary care, and psychiatry. And has prescriptions written by same. Patient rates symptoms at 4/10 today, patient denies other complaint. - Related Data Home Medications Medication Instructions Recorded Confirmed Last Taken Albuterol Sulfate [Ventolin HFA] 2 in2 IH Q4H 11/01/15 01/07/19 02/23/16 2 Aspirin EC [Halfprin EC] 81 mg PO DAILY 11/01/15 01/07/19 02/23/16 81 mg Budesoni/Formotero 160-4.5(Nf) 2 inhalation IH BID 11/01/15 01/07/19 02/23/16 [Symbicort 160-4.5 (Nf)] 2 Previous Rx's Medication Instructions Recorded Last Taken Type Albuterol Mdi (or & Nicu Only) 2 puff IH QID PRN #1 inhalation 02/18/16 02/23/16 Rx [ProAir HFA Inhaler] 2 Albuterol Sulfate [Ventolin Hfa] 1 puff IH Q4H PRN #1 hfa.aer.ad 01/21/18 Unknown Rx ALBUTEROL NEB's [Proventil 0.083% 2.5 mg IH Q4H PRN nebu 01/16/19 Unknown Rx NEBS] Divalproex ER [Depakote ER] 250 mg PO BID 30 Days tablet 01/16/19 Unknown Rx Divalproex ER [Depakote ER] 500 mg PO BID 30 Days tablet 01/16/19 Unknown Rx Gabapentin 600 mg PO QID 30 Days capsule 01/16/19 Unknown Rx Nicotine [Habitrol] 21 mg TD QDAY 30 Days patch 01/16/19 Unknown Rx QUEtiapine [SEROquel] 300 mg PO BID 30 Days tablet 01/16/19 Unknown Rx clonazePAM [KlonoPIN] 1 mg PO TID 14 Days tablet 01/16/19 Unknown Rx Ondansetron [Zofran Odt] 4 mg PO Q8HR PRN #20 tab.rapdis 09/05/19 Unknown Rx Azithromycin [Zithromax Z-BARBIE] 0 mg PO DAILY #6 tab 04/04/20 Unknown Rx Allergies Allergy/AdvReac Type Severity Reaction Status Date / Time haloperidol [From Haldol] Allergy Swelling Verified 02/17/16 23:27 haloperidol lactate Allergy Swelling Verified 06/13/13 23:08 [From Haldol] ibuprofen [From Motrin] Allergy Swelling Verified 02/17/16 23:27 Sulfa (Sulfonamide Allergy Unknown Verified 02/17/16 23:27 Antibiotics) ziprasidone HCl [From Geodon] Allergy Unknown Verified 02/17/16 23:27 ziprasidone mesylate Allergy Unknown Verified 02/17/16 23:26 [From Geodon] ED Review of Systems ROS: Stated complaint: STRESS Other details as noted in HPI Constitutional: denies: chills, fever Eyes: denies: eye pain, eye discharge, vision change ENT: denies: ear pain, throat pain Respiratory: denies: cough, shortness of breath, wheezing Cardiovascular: denies: chest pain, palpitations Endocrine: no symptoms reported Genitourinary: denies: urgency, dysuria, discharge Musculoskeletal: denies: back pain, joint swelling, arthralgia Skin: denies: rash, lesions Neurological: denies: headache, weakness, paresthesias Psychiatric: anxiety Hematological/Lymphatic: as per HPI ED Past Medical Hx - Past Medical History Previous Medical History?: Yes Hx Congestive Heart Failure: Yes Hx Arthritis: Yes Hx Seizures: Yes Hx Psychiatric Treatment: Yes (Bipolar, Manic) Hx Asthma: Yes Additional medical history: Chronic knee pain - sees pain specialist,TIA x 2 - Surgical History Past Surgical History?: Yes Additional Surgical History: C-sections x 2 - Social History Smoking Status: Current Some Day Smoker Substance Use Type: Alcohol - Medications Home Medications: Home Medications Medication Instructions Recorded Confirmed Last Taken Type Albuterol Sulfate [Ventolin HFA] 2 in2 IH Q4H 11/01/15 01/07/19 02/23/16 History 2 Aspirin EC [Halfprin EC] 81 mg PO DAILY 11/01/15 01/07/19 02/23/16 History 81 mg Budesoni/Formotero 160-4.5(Nf) 2 inhalation IH BID 11/01/15 01/07/19 02/23/16 History [Symbicort 160-4.5 (Nf)] 2 Albuterol Mdi (or & Nicu Only) 2 puff IH QID PRN #1 inhalation 02/18/16 01/07/19 02/23/16 Rx [ProAir HFA Inhaler] 2 Albuterol Sulfate [Ventolin Hfa] 1 puff IH Q4H PRN #1 hfa.aer.ad 01/21/18 01/07/19 Unknown Rx ALBUTEROL NEB's [Proventil 0.083% 2.5 mg IH Q4H PRN nebu 01/16/19 Unknown Rx NEBS] Divalproex ER [Depakote ER] 250 mg PO BID 30 Days tablet 01/16/19 Unknown Rx Divalproex ER [Depakote ER] 500 mg PO BID 30 Days tablet 01/16/19 Unknown Rx Gabapentin 600 mg PO QID 30 Days capsule 01/16/19 Unknown Rx Nicotine [Habitrol] 21 mg TD QDAY 30 Days patch 01/16/19 Unknown Rx QUEtiapine [SEROquel] 300 mg PO BID 30 Days tablet 01/16/19 Unknown Rx clonazePAM [KlonoPIN] 1 mg PO TID 14 Days tablet 01/16/19 Unknown Rx Ondansetron [Zofran Odt] 4 mg PO Q8HR PRN #20 tab.rapdis 09/05/19 Unknown Rx Azithromycin [Zithromax Z-BARBIE] 0 mg PO DAILY #6 tab 04/04/20 Unknown Rx ED Physical Exam - General Limitations: No Limitations General appearance: alert, in no apparent distress - Head Head exam: Present: atraumatic, normocephalic - Eye Eye exam: Present: normal appearance, EOMI Pupils: Present: normal accommodation - ENT ENT exam: Present: mucous membranes moist - Neck Neck exam: Present: normal inspection, full ROM. Absent: tenderness - Respiratory Respiratory exam: Present: normal lung sounds bilaterally. Absent: respiratory distress, wheezes - Cardiovascular Cardiovascular Exam: Present: regular rate, normal rhythm, normal heart sounds. Absent: systolic murmur, diastolic murmur, rubs, gallop - GI/Abdominal GI/Abdominal exam: Present: soft, normal bowel sounds. Absent: distended, tenderness - Rectal Rectal exam: Present: deferred - Extremities Exam Extremities exam: Present: normal inspection, full ROM - Back Exam Back exam: Present: normal inspection, full ROM. Absent: tenderness - Neurological Exam Neurological exam: Present: alert, oriented X3, CN II-XII intact, normal gait - Psychiatric Psychiatric exam: Present: normal affect, normal mood - Skin Skin exam: Present: warm, dry, intact, normal color. Absent: rash ED Course Vital Signs 01/30/21 17:15 Temperature 98.9 F Pulse Rate 83 Respiratory 18 Rate Blood Pressure 125/79 [Right] O2 Sat by Pulse 98 Oximetry ED Medical Decision Making - Medical Decision Making Patient was seen and evaluated by ED attending Aris Preciado. recommendation DC home with community resource referral packet. Patient DC'd to self in stable condition at this time. Critical care attestation.: If time is entered above; I have spent that time in minutes in the direct care of this critically ill patient, excluding procedure time. ED Disposition Clinical Impression: Stress Disposition: DC-01 TO HOME OR SELFCARE Is pt being admited?: No Does the pt Need Aspirin: No Condition: Stable Additional Instructions: Follow-up with your primary care doctor in 2 to 3 days, follow direction in your community resource packet. Return to emergency should symptoms develop or wo rsen. Referrals: PRIMARY CARE, [Referring] - 3-5 Days Time of Disposition: 21:16
--- NOTE | 2021-01-30 21:15 | Event Note ---
Face to Face: For this encounter I have reviewed the PA/TANNING WHEEL OPERATOR documentation, treatment plan, medical decision making, and I had face to face time with this patient. Agree with [facility] documentation. Patient states she is here simply for anxiety and wants people to leave her alone. States she is having difficulty with the people she lives with. States she needs to go inpatient because otherwise she will be homeless. Discussed with the patient this is not a patient reason for inpatient treatment. She is not homicidal suicidal or having any active hallucinations. Patient discharged home with outpatient resources.
[2021-01-30 23:27] VITALS: BP 122/77
== END 2021-01-30 21:50 | disposition home or self-care (01) ==
LOC: ED 15:35
DX: F43.9 Reaction to severe stress, unspecified (principal); I50.9 Heart failure, unspecified; M19.91 Primary osteoarthritis, unspecified site; R56.9 Unspecified convulsions; J45.909 Unspecified asthma, uncomplicated; F17.200 Nicotine dependence, unspecified, uncomplicated; Z98.890 Other specified postprocedural states; Z79.2 Long term (current) use of antibiotics; Z79.899 Other long term (current) drug therapy; Z88.8 Allergy status to other drugs, medicaments and biological substances
CPT/HCPCS: 99282

== ENCOUNTER 2021-04-04 04:42 | Emergency (ER) | payer MEDICARE ==
--- NOTE | 2021-04-04 06:15 | Emergency Department Report ---
HPI - General Chief Complaint: Medical Clearance Time Seen by Provider: 04/04/21 06:02 - HPI HPI: This is a 60-year-old female presents to the emergency department from [place] for a medical clearance. The patient has already been made a 1013 by a Orville Urbano licensed professional counselor. The 1013 states that the patient is unable to care for herself because she has "psychosis and out of touch with reality." It also states that the patient is "repeating the same words and making nonsensical statements." The patient has a history of bipolar disorder and schizophrenia. During my initial examination the patient is consistently talking to herself with pressured speech. She will answer my questions, once again, with a stream of consciousness and/or rambling thoughts. She denies any suicidal or homicidal ideations. The patient does appear to understand that she is here for a medical clearance. ED Past Medical Hx - Past Medical History Hx Congestive Heart Failure: Yes Hx Arthritis: Yes Hx Seizures: Yes Hx Psychiatric Treatment: Yes (Bipolar, Manic) Hx Asthma: Yes Additional medical history: Chronic knee pain - sees pain specialist,TIA x 2 - Surgical History Additional Surgical History: C-sections x 2 - Social History Smoking Status: Unknown if ever smoked Substance Use Type: None - Medications Home Medications: Home Medications Medication Instructions Recorded Confirmed Last Taken Type Albuterol Sulfate [Ventolin HFA] 2 in2 IH Q4H 11/01/15 01/07/19 02/23/16 History 2 Aspirin EC [Halfprin EC] 81 mg PO DAILY 11/01/15 01/07/19 02/23/16 History 81 mg Budesoni/Formotero 160-4.5(Nf) 2 inhalation IH BID 11/01/15 01/07/19 02/23/16 History [Symbicort 160-4.5 (Nf)] 2 Albuterol Mdi (or & Nicu Only) 2 puff IH QID PRN #1 inhalation 02/18/16 01/07/19 02/23/16 Rx [ProAir HFA Inhaler] 2 Albuterol Sulfate [Ventolin Hfa] 1 puff IH Q4H PRN #1 hfa.aer.ad 01/21/18 01/07/19 Unknown Rx ALBUTEROL NEB's [Proventil 0.083% 2.5 mg IH Q4H PRN nebu 01/16/19 Unknown Rx NEBS] Divalproex ER [Depakote ER] 250 mg PO BID 30 Days tablet 01/16/19 Unknown Rx Divalproex ER [Depakote ER] 500 mg PO BID 30 Days tablet 01/16/19 Unknown Rx Gabapentin 600 mg PO QID 30 Days capsule 01/16/19 Unknown Rx Nicotine [Habitrol] 21 mg TD QDAY 30 Days patch 01/16/19 Unknown Rx QUEtiapine [SEROquel] 300 mg PO BID 30 Days tablet 01/16/19 Unknown Rx clonazePAM [KlonoPIN] 1 mg PO TID 14 Days tablet 01/16/19 Unknown Rx Ondansetron [Zofran Odt] 4 mg PO Q8HR PRN #20 tab.rapdis 09/05/19 Unknown Rx Azithromycin [Zithromax Z-BARBIE] 0 mg PO DAILY #6 tab 04/04/20 Unknown Rx Nitrofurantoin [place]/M-Cryst 100 mg PO Q12HR #14 capsule 04/04/21 Unknown Rx [Macrobid CAP] ED Review of Systems ROS: Stated complaint: MEDICAL CLEARANCE Other details as noted in HPI Comment: All other systems reviewed and negative Constitutional: denies: chills, fever Respiratory: denies: cough, shortness of breath Cardiovascular: denies: chest pain, palpitations Gastrointestinal: denies: abdominal pain, vomiting Musculoskeletal: denies: back pain, joint swelling Neurological: denies: headache, weakness Psychiatric: denies: homicidal thoughts, suicidal thoughts Physical Exam - Physical Exam Vital Signs: Vital Signs 04/04/21 04/04/21 04/04/21 05:16 05:19 05:24 Pulse Rate 89 Respiratory 20 20 Rate Blood Pressure 109/71 O2 Sat by Pulse 97 97 Oximetry Physical Exam: GENERAL: The patient is well-developed well-nourished. HENT: Normocephalic. Atraumatic. Patient has moist mucous membranes. EYES: Extraocular motions are intact. NECK: Supple. Trachea is midline. CHEST/LUNGS: Clear to auscultation. There is no respiratory distress noted. HEART/CARDIOVASCULAR: Regular. There is no tachycardia. There is no murmur. ABDOMEN: Abdomen is soft, nontender. Patient has normal bowel sounds. There is no abdominal distention. SKIN: Skin is warm and dry. NEURO: The patient is awake, alert. Follows commands. No slurred speech. MUSCULOSKELETAL: There is no tenderness or deformity. PSYCH: Patient is expressing psychosis with pressured speech and rambling thoughts. ED Course Vital Signs 04/04/21 04/04/21 04/04/21 05:16 05:19 05:24 Pulse Rate 89 Respiratory 20 20 Rate Blood Pressure 109/71 O2 Sat by Pulse 97 97 Oximetry ED Medical Decision Making - Lab Data Result diagrams: 04/04/21 06:59 04/04/21 06:59 Lab Results 04/04/21 04/04/21 04/04/21 Range/Units 06:59 06:59 06:59 WBC 5.5 (4.5-11.0) K/mm3 RBC 3.76 (3.65-5.03) M/mm3 Hgb 11.8 (10.1-14.3) gm/dl Hct 34.9 (30.3-42.9) % MCV 93 (79-97) fl MCH 31 (28-32) pg MCHC 34 (30-34) % RDW 14.9 (13.2-15.2) % Plt Count 236 (140-440) K/mm3 Add Manual Diff Complete Total Counted 100 Seg Neuts % (Manual) 70.0 (40.0-70.0) % Band Neutrophils % 6.0 % Lymphocytes % (Manual) 17.0 (13.4-35.0) % Reactive Lymphs % (Man) 1.0 % Monocytes % (Manual) 5.0 (0.0-7.3) % Myelocytes % 1.0 % Nucleated RBC % Not Reportable Seg Neutrophils # Man 3.9 (1.8-7.7) K/mm3 Band Neutrophils # 0.3 K/mm3 Lymphocytes # (Manual) 0.9 L (1.2-5.4) K/mm3 Abs React Lymphs (Man) 0.1 K/mm3 Monocytes # (Manual) 0.3 (0.0-0.8) K/mm3 Eosinophils # (Manual) 0.0 (0.0-0.4) K/mm3 Basophils # (Manual) 0.0 (0.0-0.1) K/mm3 Metamyelocytes # 0.0 K/mm3 Myelocytes # 0.1 K/mm3 Promyelocytes # 0.0 K/mm3 Blast Cells # 0.0 K/mm3 WBC Morphology Not Reportable Hypersegmented Neuts Not Reportable Hyposegmented Neuts Not Reportable Hypogranular Neuts Not Reportable Smudge Cells Not Reportable Toxic Granulation Not Reportable Toxic Vacuolation Not Reportable Dohle Bodies Not Reportable Pelger-Huet Anomaly Not Reportable Rony Rods Not Reportable Platelet Estimate Consistent w auto Clumped Platelets Not Reportable Plt Clumps, EDTA Not Reportable Large Platelets Not Reportable Giant Platelets Not Reportable Platelet Satelliting Not Reportable Plt Morphology Comment Not Reportable RBC Morphology Not Reportable Dimorphic RBCs Not Reportable Polychromasia Not Reportable Hypochromasia Not Reportable Poikilocytosis Not Reportable Anisocytosis Not Reportable Microcytosis Not Reportable Macrocytosis Not Reportable Spherocytes Not Reportable Pappenheimer Bodies Not Reportable Sickle Cells Not Reportable Target Cells Not Reportable Tear Drop Cells Not Reportable Ovalocytes Not Reportable Helmet Cells Not Reportable Gutierrez-Hinckley Bodies Not Reportable [place] Rings Not Reportable [place] Cells Not Reportable Bite Cells Not Reportable Crenated Cell Not Reportable Elliptocytes Not Reportable Acanthocytes (Spur) Not Reportable Rouleaux Not Reportable Hemoglobin C Crystals Not Reportable Schistocytes Not Reportable Malaria parasites Not Reportable Edwin Bodies Not Reportable Hem Pathologist Commnt No Sodium 138 (137-145) mmol/L Potassium 4.1 (3.6-5.0) mmol/L Chloride 99.2 (98-107) mmol/L Carbon Dioxide 30 (22-30) mmol/L Anion Gap 13 mmol/L BUN 16 (7-17) mg/dL Creatinine 0.5 L (0.6-1.2) mg/dL Estimated GFR > 60 ml/min BUN/Creatinine Ratio 32 % Glucose 97 (65-100) mg/dL Calcium 9.4 (8.4-10.2) mg/dL Urine Color (Yellow) Urine Turbidity (Clear) Urine pH (5.0-7.0) Ur Specific [place] (1.003-1.030) Urine Protein (Negative) mg/dL Urine Glucose (UA) (Negative) mg/dL Urine Ketones (Negative) mg/dL Urine Blood (Negative) Urine Nitrite (Negative) Urine Bilirubin (Negative) Urine Urobilinogen (<2.0) mg/dL Ur Leukocyte Esterase (Negative) Urine WBC (Auto) (0.0-6.0) /HPF Urine RBC (Auto) (0.0-6.0) /HPF U Epithel Cells (Auto) (0-13.0) /HPF Urine Bacteria (Auto) (Negative) /HPF Urine Opiates Screen Urine Methadone Screen Ur Barbiturates Screen Ur Phencyclidine Scrn Ur Amphetamines Screen U Benzodiazepines Scrn Urine Cocaine Screen U Marijuana (THC) Screen Drugs of Abuse Note Plasma/Serum Alcohol < 0.01 (0-0.07) % 04/04/21 04/04/21 Range/Units Unknown Unknown WBC (4.5-11.0) K/mm3 RBC (3.65-5.03) M/mm3 Hgb (10.1-14.3) gm/dl Hct (30.3-42.9) % MCV (79-97) fl MCH (28-32) pg MCHC (30-34) % RDW (13.2-15.2) % Plt Count (140-440) K/mm3 Add Manual Diff Total Counted Seg Neuts % (Manual) (40.0-70.0) % Band Neutrophils % % Lymphocytes % (Manual) (13.4-35.0) % Reactive Lymphs % (Man) % Monocytes % (Manual) (0.0-7.3) % Myelocytes % % Nucleated RBC % Seg Neutrophils # Man (1.8-7.7) K/mm3 Band Neutrophils # K/mm3 Lymphocytes # (Manual) (1.2-5.4) K/mm3 Abs React Lymphs (Man) K/mm3 Monocytes # (Manual) (0.0-0.8) K/mm3 Eosinophils # (Manual) (0.0-0.4) K/mm3 Basophils # (Manual) (0.0-0.1) K/mm3 Metamyelocytes # K/mm3 Myelocytes # K/mm3 Promyelocytes # K/mm3 Blast Cells # K/mm3 WBC Morphology Hypersegmented Neuts Hyposegmented Neuts Hypogranular Neuts Smudge Cells Toxic Granulation Toxic Vacuolation Dohle Bodies Pelger-Huet Anomaly Rony Rods Platelet Estimate Clumped Platelets Plt Clumps, EDTA Large Platelets Giant Platelets Platelet Satelliting Plt Morphology Comment RBC Morphology Dimorphic RBCs Polychromasia Hypochromasia Poikilocytosis Anisocytosis Microcytosis Macrocytosis Spherocytes Pappenheimer Bodies Sickle Cells Target Cells Tear Drop Cells Ovalocytes Helmet Cells Gutierrez-Hinckley Bodies [place] Rings [place] Cells Bite Cells Crenated Cell Elliptocytes Acanthocytes (Spur) Rouleaux Hemoglobin C Crystals Schistocytes Malaria parasites Edwin Bodies Hem Pathologist Commnt Sodium (137-145) mmol/L Potassium (3.6-5.0) mmol/L Chloride (98-107) mmol/L Carbon Dioxide (22-30) mmol/L Anion Gap mmol/L BUN (7-17) mg/dL Creatinine (0.6-1.2) mg/dL Estimated GFR ml/min BUN/Creatinine Ratio % Glucose (65-100) mg/dL Calcium (8.4-10.2) mg/dL Urine Color Yellow (Yellow) Urine Turbidity Clear (Clear) Urine pH 8.0 H (5.0-7.0) Ur Specific [place] 1.013 (1.003-1.030) Urine Protein <15 mg/dl (Negative) mg/dL Urine Glucose (UA) Neg (Negative) mg/dL Urine Ketones Neg (Negative) mg/dL Urine Blood Neg (Negative) Urine Nitrite Neg (Negative) Urine Bilirubin Neg (Negative) Urine Urobilinogen 2.0 (<2.0) mg/dL Ur Leukocyte Esterase Neg (Negative) Urine WBC (Auto) 22.0 H (0.0-6.0) /HPF Urine RBC (Auto) 1.0 (0.0-6.0) /HPF U Epithel Cells (Auto) 9.0 (0-13.0) /HPF Urine Bacteria (Auto) 1+ (Negative) /HPF Urine Opiates Screen Negative Urine Methadone Screen Negative Ur Barbiturates Screen Negative Ur Phencyclidine Scrn Negative Ur Amphetamines Screen Negative U Benzodiazepines Scrn Negative Urine Cocaine Screen Negative U Marijuana (THC) Screen Positive Drugs of Abuse Note Disclamer Plasma/Serum Alcohol (0-0.07) % - Medical Decision Making The patient presented from [place], with a [place] employee at bedside, for a medical clearance. While she was here she was also seen by psychiatric nurse practitioner who agrees with the plan for a 1013 and inpatient stabilization. Patient's labs have been mostly unremarkable including CBC, metabolic panel, negative blood alcohol level. UDS is only positive for marijuana. Urinalysis shows a very mild urinary tract infection. Vital signs of been reassuring throughout her ED course including being afebrile. Patient will be started on Macrobid for the UTI. She appears medically cleared for psychiatric placement. Critical Care Time: No Critical care attestation.: If time is entered above; I have spent that time in minutes in the direct care of this critically ill patient, excluding procedure time. ED Disposition Clinical Impression: Acute psychosis, Medical clearance for psychiatric admission, UTI (urinary tract infection) Disposition: [address] [place] [address] Is pt being admited?: No Condition: Stable Instructions: Urinary Tract Infection, Adult, [id number] Prescriptions: Nitrofurantoin [place]/M-Cryst [Macrobid CAP] 100 mg PO Q12HR #14 capsule Time of Disposition: 14:33
[2021-04-04 07:46] LABS: Hematocrit 34.9 % (30.3-42.9); Hemoglobin 11.8 gm/dl (10.1-14.3); Mean Corpuscular HGB Conc 34 % (30-34); Mean Corpuscular Volume 93 fl (79-97); Platelet Count 236 K/mm3 (140-440); Red Blood Count 3.76 M/mm3 (3.65-5.03); Red Cell Distribution Width 14.9 % (13.2-15.2)
[2021-04-04 08:31] LABS: Blood Urea Nitrogen 16 mg/dL (7-17); Calcium 9.4 mg/dL (8.4-10.2); Hemolysis Index 14
[2021-04-04 08:35] LABS: BUN/Creatinine Ratio 32
[2021-04-04 10:26] LABS: Bacteria,Urine 1+ /HPF (Negative); Bilirubin,Urine NEG (Negative); Blood,Urine NEG (Negative); Color,Urine Yellow (Yellow); Protein,Urine <15 mg/dL mg/dL (Negative)
[2021-04-04 10:44] LABS: Amphetamine Screen,Urine Negative; Benzodiazepines Screen,Urine Negative; Cocaine Screen,Urine Negative; Methadone Screen,Urine Negative; Opiate Screen,Urine Negative
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
[2021-04-04 11:16] LABS: Cannabinoid Screen,Urine Positive
[2021-04-04] MEDS ORDERED: QUEtiapine 25 MG TAB PO NR (12:00)
[2021-04-04] MEDS ORDERED: DIVALPROEX DR 500 MG TAB PO SCH (12:00)
[2021-04-04] MEDS ORDERED: QUEtiapine 25 MG TAB PO SCH (12:00)
[2021-04-04 14:56] LABS: Band Neutrophils # (Manual) 0.3 K/mm3; Myelocytes # (Manual) 0.1 K/mm3; Total Cells Counted 100
[2021-04-04 14:57] LABS: Platelet Estimate Consistent w Auto
[2021-04-04 16:20] VITALS: BP 118/72
== END 2021-04-04 18:35 ==
LOC: ED 04:42
DX: Z13.30 Encounter for screening examination for mental health and behavioral disorders, unspecified (principal); F23 Brief psychotic disorder; N39.0 Urinary tract infection, site not specified; F31.9 Bipolar disorder, unspecified; M19.90 Unspecified osteoarthritis, unspecified site; J45.909 Unspecified asthma, uncomplicated; G89.29 Other chronic pain; Z98.890 Other specified postprocedural states; Z88.8 Allergy status to other drugs, medicaments and biological substances; Z88.5 Allergy status to narcotic agent; Z79.899 Other long term (current) drug therapy
CPT/HCPCS: 36415; 80048; 80307; 80320; 81001; 85007; 85025; 87086; 99285; G0480